=== PATIENT | female | born 1960 | race Caucasian/White ===

== ENCOUNTER 2020-06-15 06:21 | Outpatient (REF) | payer BC, SELFPAY ==
[2020-06-15 11:10] LABS: MANUAL DIFF FLAG NO
[2020-06-15 11:17] LABS: Basophils Absolute Auto 0.1 X10*3/uL (0.0-0.2); Basophils Percent Auto 1.1 % (0-2); Eosinophils Absolute Auto 1.2 X10*3/uL (0.0-0.4); Eosinophils Percent Auto 14.7 % (0-4); Hematocrit 37.1 % (37-47); Hemoglobin 11.9 g/dl (12.0-16.0); Imm Gran Abs Auto 0.03 X10*3/uL (0.00-0.03); Imm Gran Pct Auto 0.4 % (0.0-0.4); Lymphocytes Absolute Auto 2.6 X10*3/uL (1.2-4.9); Lymphocytes Percent Auto 31.7 % (20-40); Mean Corpuscular HGB Conc 32.1 g/dl (31.0-35.0); Mean Corpuscular Volume 90.5 fL (80-98); Mean Platelet Volume 10.2 fL (9.4-12.3); Monocytes Absolute Auto 0.7 X10*3/uL (0.1-1.2); Monocytes Percent Auto 8.2 % (2-11); Neutrophils Absolute Auto 3.5 X10*3/uL (2.0-8.3); Neutrophils Percent Auto 43.9 % (45-73); Platelet Count 320 X10*3/uL (160-400); Red Cell Distribution Width 12.5 % (11.0-16.0); White Blood Count 8.1 X10*3/uL (4.8-10.8)
[2020-06-15 11:48] LABS: Alanine Aminotransferase 12 U/L (0-31); Anion Gap 15 (12-20); Aspartate Amino Transferase 16 U/L (5-31); Blood Urea Nitrogen 19 mg/dL (9-16); Calcium 9.1 mg/dL (8.4-10.2); Carbon Dioxide 25 mmol/L (22-29); Chloride 107 mmol/L (96-108); Cholesterol 243 mg/dL; Estimated Glomerular Filt Rate > 60; Glucose Fasting 88 mg/dL (60-99); HDL Cholesterol 53 mg/dL; LDL Cholesterol Calculated 153 mg/dl; Potassium 4.5 mmol/L (3.3-5.1); Sodium 142 mmol/L (135-145); Triglycerides 188 mg/dL
[2020-06-15 11:59] LABS: Vitamin D 25-OH Total 107.4 ng/mL (>30)
== END 2020-06-15 06:22 | disposition home or self-care (01) ==
LOC: HO.HMGCLDS 06:21
PROVIDERS: PCP Internal Medicine; Visit Provider Internal Medicine
DX: E78.5 Hyperlipidemia, unspecified (principal); I10 Essential (primary) hypertension
CPT/HCPCS: 36415; 80048; 80061; 82306; 84450; 84460; 85025

== ENCOUNTER 2021-06-05 06:20 | Outpatient (REF) | payer BC, SELFPAY ==
[2021-06-05 11:18] LABS: MANUAL DIFF FLAG NO
[2021-06-05 11:37] LABS: Basophils Absolute Auto 0.1 X10*3/uL (0.0-0.2); Eosinophils Absolute Auto 0.7 X10*3/uL (0.0-0.4); Eosinophils Percent Auto 8.8 % (0-4); Hematocrit 40.7 % (37.0-47.0); Hemoglobin 12.8 g/dl (12.0-16.0); Imm Gran Abs Auto 0.01 X10*3/uL (0.00-0.03); Imm Gran Pct Auto 0.1 % (0.0-0.4); Lymphocytes Absolute Auto 2.5 X10*3/uL (1.2-4.9); Lymphocytes Percent Auto 32.6 % (20-40); Mean Corpuscular HGB Conc 31.4 g/dl (31.0-35.0); Mean Corpuscular Hemoglobin 28.9 pg (27.0-33.0); Mean Corpuscular Volume 91.9 fL (80.0-98.0); Mean Platelet Volume 10.7 fL (9.4-12.3); Monocytes Absolute Auto 0.6 X10*3/uL (0.1-1.2); Neutrophils Absolute Auto 3.8 x10*3/uL (2.0-8.3); Neutrophils Percent Auto 49.5 % (45-73); Platelet Count 326 X10*3/uL (160-400); Red Blood Count 4.43 X10*6/uL (4.20-5.50); Red Cell Distribution Width 12.5 % (11.0-16.0); White Blood Count 7.7 X10*3/uL (4.8-10.8)
[2021-06-05 12:23] LABS: Alanine Aminotransferase 16 U/L (0-31); Anion Gap 14 (12-20); Aspartate Amino Transferase 20 U/L (5-31); Blood Urea Nitrogen 16 mg/dL (9-16); Calcium 10.3 mg/dL (8.4-10.2); Carbon Dioxide 27 mmol/L (22-29); Chloride 106 mmol/L (96-108); Cholesterol 234 mg/dL; Estimated Glomerular Filt Rate > 60; Glucose Fasting 87 mg/dL (60-99); HDL Cholesterol 60 mg/dL; LDL Cholesterol Calculated 155 mg/dl; Potassium 4.5 mmol/L (3.3-5.1); Sodium 142 mmol/L (135-145); Triglycerides 95 mg/dL
[2021-06-05 12:47] LABS: Vitamin D 25-OH Total 143.3 ng/mL (>30)
== END 2021-06-05 06:21 | disposition home or self-care (01) ==
LOC: HO.HMGCLDS 06:20
PROVIDERS: Visit Provider Internal Medicine
DX: Z00.01 Encounter for general adult medical examination with abnormal findings (principal); D64.9 Anemia, unspecified; E78.5 Hyperlipidemia, unspecified; Z78.0 Asymptomatic menopausal state
CPT/HCPCS: 36415; 80048; 80061; 82306; 84450; 84460; 85025

== ENCOUNTER 2022-05-29 14:01 | Outpatient (REF) | payer BC, SELFPAY ==
[2022-06-03 13:49] LABS: HPV mRNA E6/E7 rflx Not Detected (Not Detected)
== END 2022-05-29 14:02 | disposition home or self-care (01) ==
LOC: HO.LNP 14:01
PROVIDERS: Visit Provider Internal Medicine
DX: Z01.419 Encounter for gynecological examination (general) (routine) without abnormal findings (principal)
CPT/HCPCS: 87624; 88142

== ENCOUNTER 2022-06-17 06:32 | Outpatient (REF) | payer BC, SELFPAY ==
[2022-06-17 12:42] LABS: Alanine Aminotransferase 12 U/L (0-31); Anion Gap 12 (12-20); Aspartate Amino Transferase 18 U/L (5-31); Blood Urea Nitrogen 18 mg/dL (9-16); Calcium 9.5 mg/dL (8.4-10.2); Carbon Dioxide 28 mmol/L (22-29); Chloride 107 mmol/L (96-108); Cholesterol 285 mg/dL; Estimated Glomerular Filt Rate > 60; Glucose Fasting 89 mg/dL (60-99); HDL Cholesterol 73 mg/dL; LDL Cholesterol Calculated 196 mg/dl; Sodium 142 mmol/L (135-145); Triglycerides 82 mg/dL
[2022-06-17 13:02] LABS: Vitamin D 25-OH Total > 154.2 ng/mL (>30)
[2022-06-23 18:19] LABS: Calcium, Ionized 4.9 mg/dL (4.7-5.5)
== END 2022-06-17 06:33 | disposition home or self-care (01) ==
LOC: HO.HMGCLDS 06:32
PROVIDERS: PCP Internal Medicine; Visit Provider Internal Medicine
DX: Z00.01 Encounter for general adult medical examination with abnormal findings (principal); E67.3 Hypervitaminosis D; E83.52 Hypercalcemia; J34.2 Deviated nasal septum; R43.0 Anosmia; U09.9 Post COVID-19 condition, unspecified; J30.89 Other allergic rhinitis; E78.5 Hyperlipidemia, unspecified
CPT/HCPCS: 36415; 80048; 80061; 82306; 82330; 84450; 84460

== ENCOUNTER 2023-06-03 06:28 | Outpatient (REF) | payer BC, SELFPAY ==
[2023-06-03 12:28] LABS: Alanine Aminotransferase 14 U/L (0-31); Anion Gap 9 (12-20); Aspartate Amino Transferase 15 U/L (5-31); Blood Urea Nitrogen 15 mg/dL (9-16); Calcium 9.2 mg/dL (8.4-10.2); Carbon Dioxide 29 mmol/L (22-29); Chloride 107 mmol/L (96-108); Cholesterol 228 mg/dL (<200); Estimated Glomerular Filt Rate > 60; Glucose Fasting 79 mg/dL (60-99); HDL Cholesterol 69 mg/dL (>40); LDL Cholesterol Calculated 126 mg/dL (<100); Potassium 4.1 mmol/L (3.3-5.1); Sodium 141 mmol/L (135-145); Triglycerides 169 mg/dL (<150); Vitamin D 25-OH Total 97.6 ng/mL (>30)
== END 2023-06-03 06:29 | disposition home or self-care (01) ==
LOC: HO.HMGCLDS 06:28
PROVIDERS: PCP Internal Medicine; Visit Provider Internal Medicine
DX: Z13.1 Encounter for screening for diabetes mellitus (principal); E78.5 Hyperlipidemia, unspecified; Z78.0 Asymptomatic menopausal state
CPT/HCPCS: 36415; 80048; 80061; 82306; 84450; 84460

== ENCOUNTER 2023-06-09 08:05 | Outpatient (AMB) | payer BC, SELFPAY ==
--- NOTE | 2023-06-09 08:10 | MHC.PC.OV ---
Vital Signs 06/09/23 08:28 Height 5 ft 3 in Weight 140 lb BMI 24.8 BP 166/80 H Blood Pressure Location Lt brachial Position Sitting Pulse 89 Pulse Source Pulse Oximeter Pulse Oximetry (%) 93 Oxygen Delivery Method Room Air Intake Visit Reasons: Annual PE Intake Note: Pt is here today for her PE: last papsmear 05/30/22, mammogram 06/08/23, colonoscopy 01/12/23 Allergies No Known Allergies Allergy (Verified 06/09/23 08:43) Medication List - Last Reconciled 06/09/23 by Juany Victoria MD B-complex with vitamin C 1 tab PO DAILY calcium carbonate-vitamin D3 600 mg-12.5 mcg (500 unit) (Calcium 600 with Vitamin D3) caps PO dapsone 100 mg PO DAILY prednisone 10 mg PO DAILY sulfamethoxazole-trimethoprim 400-80 mg (Bactrim) 1 tab PO DAILY Tobacco use date assessed: 06/09/23 Dental Screening Dental Screen Date: 06/09/23 Did you have a dental visit in the last 12 months?: Yes Did you have a dental problem in the last 6 months where you did not have access to dental care?: Yes Was dental information given to patient?: Patient has dentist HPI Annual PE HPI Details 62-year-old lady here today for her physical exam. She is up-to-date with her screening colonoscopy done by Dr. Leone December 2022 with polypectomy done, f internal hemorrhoids and diverticulosis seen. She is up-to-date with her cervical cancer screening, done last year with negative findings. She has had COVID vaccination and flu shot as well as Tdap but has not had shingles vaccine. Up-to-date with her screening mammogram done 06/08/2023 negative findings. She had lost her sense of smell, initially thought it was from COVID, but a biopsy done by ENT showed granulomatosis with polyangiitis with polyangiitis of the sinuses and nasal septum, with negative ANCA. She was treated with 2 courses of rituximab, prednisone, dapsone and Bactrim with significant improvement in her feeling of pressure, facial discomfort and dried sensation nose and has just been continued on saline nasal spray. She denies any rash, joint pains or any abnormal bleeding. [facility] Medical History (Updated 06/16/23 @ 01:12 by Juany Victoria MD) Essential hypertension Granulomatosis with polyangiitis of nose Deviated nasal septum Environmental and seasonal allergies Tear of left meniscus as current injury Dyslipidemia History of dysfunctional uterine bleeding Surgical History Hx of colonoscopy H/O prior ablation treatment History of tubal ligation Family History Father Yesi Gehrig disease Mother No problems noted. Brother CAD (coronary artery disease) Myocardial infarction Sister COPD (chronic obstructive pulmonary disease) Smoker Breast cancer Sister HTN (hypertension) Son Asthma Mental health disorder Sister No problems noted. Brother No problems noted. Son No problems noted. Social History Housing: House Alcohol intake: current Patient Tobacco Use Status: Former Tobacco user e-Cigarette/Vaping Use: Never Used service: No Current occupational status: employed Cognitive needs: No Hearing needs: No Vision needs: Yes Questionnaire PHQ-9 Over the last 2 weeks, how often have you been bothered by any of the following problems? 1. Little interest or pleasure in doing things: not at all 2. Feeling down, depressed, or hopeless: not at all 3. Trouble falling or staying asleep, or sleeping too much: not at all 4. Feeling tired or having little energy: not at all 5. Poor appetite or overeating: not at all 6. Feeling bad about yourself - or that you are a failure or have let yourself or your family down: not at all 7. Trouble concentrating on things, such as reading the newspaper or watching television: not at all 8. Moving or speaking so slowly that other people could have noticed. Or the opposite - being so fidgety or restless that you have been moving around a lot more than usual: not at all 9. Thoughts that you would be better off or of hurting yourself in some way: not at all Total score: 0 Depression Screening Interpretation: Negative Depression Screening Done: Yes 13349 - PHQ-9 Billing: Yes Source: Developed by Drs. Ronald Wayne, Sirena Wilson, Gael Olson and colleagues, with an educational meli from [employer]. Thrive Questionnaire Date Thrive assessed: 06/09/23 I am a: Patient What is your living situation today?: I have a steady place to live Within the past 12 months, did the food you bought not last and you didn't have the money to get more?: Never true Within the past 12 months, did you worry whether your food would run out before you got money to buy more?: Never true Do you have trouble paying for medicines?: No Do you have trouble getting transportation to medical appointments?: No Do you have trouble paying your heating and electricity bill?: No Do you have trouble taking care of your child, family member or friend?: No Do you have trouble with day-to-day activities such as bathing, preparing meals, shopping, managing finances, etc.?: No Are you currently unemployed and looking for a job?: No Are you interested in more education?: No THRIVE Score: 0 AUDIT C Alcohol Use Questionnaire (AUDIT-C) 1. How often do you have a drink containing alcohol?: 2-3 times a week 2. How many drinks containing alcohol do you have on a typical day when you are drinking?: 1 or 2 3. How often do you have six or more drinks on one occasion?: Less than monthly Total Score: 4 ERIC-7 AMB Questionnaire ERIC-7 Date ERIC - 7 assessed: 06/09/23 Feeling nervous, anxious, or on edge: 1 = Several days Not being able to stop or control worryin = Not at all Worrying too much about different things: 1 = Several days Trouble relaxin = Not at all Being so restless that it is hard to sit still: 0 = Not at all Becoming easily annoyed or irritable: 1 = Several days Feeling afraid as if something awful might happen: 0 = Not at all Total ERIC-7 score (0-4 normal; 5-9 mild; 10-14 moderate; 15-21 severe): 3 Source: Developed by Drs. Ronald Wayne, Gael Manzano and colleagues, with an educational meli from [employer]. ERIC-7 Assessment Billing ERIC-7 Assessment Tool: ERIC-7 Assessment 11042 Review of Systems Const Denies body aches, Denies chills, Denies difficulty sleeping, Denies fatigue, Denies fever(s), Denies frequent falls, Denies headache(s), Denies lethargy, Denies malaise, Reports night sweats, Denies poor appetite and Denies weakness Eyes Reports no additional complaints ENT Reports no additional complaints and Denies headache(s) Card Denies chest pain, Denies irregular heart rhythm and Denies lightheadedness Resp Reports no additional complaints GI Reports no additional complaints Reports no additional complaints and Denies nipple discharge Musc Denies atrophy, Denies loss of height and Denies muscle weakness Skin/Breast Denies breast skin changes, Denies breast pain, Denies breast mass, Denies lesions, Denies nipple discharge and Denies rash Neuro Denies Neuro-related abnormal movements, Denies frequent falls, Denies headache(s), Denies lack of coordination, Denies focal weakness, Denies Sensory deficit (Neuro) and Denies weakness Psych Reports no additional complaints Endo Reports no additional complaints and Denies fatigue Justin/Lymph Reports no additional complaints Aller/Immun Reports no additional complaints Physical exam (Primary Care) Vital Signs: Last Vital Signs Pulse 89 06/09/23 08:28 BP 166/80 H 06/09/23 08:28 Pulse Ox 93 06/09/23 08:28 Oxygen Delivery Method Room Air 06/09/23 08:28 BMI result Body Mass Index 24.8 Tobacco/Smoking Status: Tobacco use Status Tobacco use date assessed 06/09/23 06/09/23 08:12 Patient Tobacco Use Status Former Tobacco user 06/09/23 08:12 e-Cigarette/Vaping Use Never Used 06/09/23 08:12 PHQ-9: PHQ-9 Score PHQ-9: Total score 0 06/09/23 09:34 Depression Screening Interpretation: Negative Thrive Assessment: Date of Thrive Assessment Date Thrive assessed 06/09/23 06/09/23 08:12 Const Orientation/consciousness: patient oriented x3 HENMT Head: Yes normocephalic Ears: external ears normal, TM's normal bilaterally and EAC's normal General nose exam: Normal nasal mucous membranes and turbinates present and Abnormal external nose present (slight asymmetry of nasal bridge on left) nasal deviation Face and sinus: Yes face symmetric Mouth: Normal oral and palatal mucosa present, oropharynx normal and moist mucous membranes Eyes General: appearance normal, both eyes and all related structures Neck Neck: Yes full ROM, Yes no lymphadenopathy, Yes no meningeal signs and Yes supple Thyroid: Thyroid normal Chest Chest palpation & inspection: normal inspection of the chest Breast/axilla palpation: normal palpation of the breasts Resp Effort & Inspection: normal respiratory effort and able to speak in complete sentences Auscultation: clear to auscultation bilaterally Cardio Palpation: normal PMI Rate: regular rate Rhythm: regular rhythm Heart sounds: S1 normal heart sound present and S2 normal heart sound present Bruits: no abdominal aortic bruits GI Inspection: Yes normal to inspection Palpation (GI): No Abdominal aortic bruit present, Soft to palpation, nontender and no guarding Auscultation: normal bowel sounds General: Yes no CVA tenderness Back/Spine/Pelvis Back: no CVA tenderness and No back tenderness Skin General skin exam: no rashes or lesions noted Neuro General: patient oriented x3, gait normal, tone normal, moves all extremities, Normal light touch and pain sensation, no meningeal signs, no focal motor deficits and CN's II-XI intact bilaterally Sensory Exam: No Sensory deficit (Neuro) Extrem General: Yes full ROM, Yes no joint enlargement, Yes no pedal edema, Yes no calf tenderness and Yes normal gait Psych Appearance: grossly normal Mental Status: mental status grossly normal Speech and movement: Normal speech and movement present Affect: normal affect Attitude: cooperative Thought process: Normal thought process present Thought content: Normal thought content present Results Reviewed Results Reviewed: Name: Galina Escobar Age/Sex: 62/F : 1960 Unit#: [id number] Attend Dr: Juany Victoria MD Re06/03/23 Status: DEP [facility] Disch: SPEC : [id number] MILLICENT: 06/03/23 STATUS: COMP REQ : [id number] RECD: 06/03/[address]: Juany Victoria MD COMP: 06/03/23 ENTERED: 06/03/[address]: ORDERED: Met Prof Fast, AST, ALT, Lipid Panel, Vitamin D 25-OH Test Result Flag Reference Sodium 141 135-145 mmol/L Potassium 4.1 3.3-5.1 mmol/L CL 107 96-108 mmol/L CO2 29 22-29 mmol/L Gap 9 L 12-20 BUN 15 9-16 mg/dL Creat 0.71 0.5-1.4 mg/dL EGFR > 60 NOTE: For -[place] individuals, multiply the result by 1.210. Chronic Kidney Disease: Estimated GFR < 60 mL/min/1.73m2 Severe Kidney Disease: Estimated GFR < 15 mL/min/1.73m2 FBS 79 60-99 mg/dL CA 9.2 8.4-10.2 mg/dL AST (GOT) 15 5-31 U/L ALT (GPT) 14 0-31 U/L Triglyceride 169 H <150 mg/dL Desirable Triglyceride: less than 150 mg/dL Borderline High Triglyceride 150-199 mg/dL High Triglyceride: 200-499 mg/dL Very High Triglyceride: greater than or equal to 5OO mg/dL Cholesterol 228 H <200 mg/dL Desirable Cholesterol: less than 200 mg/dL Borderline High Cholesterol: 200-239 mg/dL High Cholesterol: greater than 239 mg/dL LDL Calculated 126 H <100 mg/dL Desirable LDL: less than 100 mg/dL Near Optimal/Above Optimal LDL: 110-129 mg/dL Borderline High LDL: 130-159 mg/dL High LDL: 160-189 mg/dL Very High LDL: greater than or equal to 190 mg/dL HDL 69 >40 mg/dL Desirable HDL: greater than 40 mg/dL Note: This HDL assay may give artificially low results in patients with liver disease. Vit D 25-OH Tot 97.6 >30 ng/mL Health Based Reference Values* < 20 ng/mL Deficient 20-30 ng/mL Insufficient > 30 ng/mL Sufficient Assessment and Plan Assessment & Plan (1) Annual visit for general adult medical examination with abnormal findings: Code(s): Z00.01 - Encounter for general adult medical examination with abnormal findings Plan: Reviewed recent fasting labs with patient. Continue with regular.dental visit every 6 months and regular eye exams, at least every 2 years. Take adequate calcium in diet and vitamin-D 3 at 2000 IU per cap once a day, in addition to weight-bearing exercises to help maintain good muscle tone and weight control. Instructed to do self-breast exam, and continue with yearly mammogram up-to-date with her cervical cancer screening and pelvic exam. Up-to-date with her screening colonoscopy. Up-to-date with her vaccinations including COVID vaccine booster and flu vaccine. Recommended to get vaccination against herpes zoster, available at the pharmacy. (2) Granulomatosis with polyangiitis of nose: Comment: Biopsy done by Dr. Linda with negative ANCA Code(s): M31.30 - Mike's granulomatosis without renal involvement Plan: Followed by Dr. Vergara , continue with regular saline nasal wash (3) Essential hypertension: Code(s): I10 - Essential (primary) hypertension Plan: Started on hydrochlorothiazide 12.5 mg per tablet, to take 1 tablet daily in a.m., reinforced i adherence to low-salt diet and getting regular exercise schedule appointment with nurse to check blood pressure in 2 weeks (4) Dyslipidemia: Code(s): E78.5 - Hyperlipidemia, unspecified Plan: Recent fasting lipid panel reviewed with patient, continue with regular weight-bearing exercise, and adherence to healthy eating habits. Medications: New hydrochlorothiazide 12.5 mg PO QAM 30 tabs 1RF Coding Level of Care Code Est Pt Prev Care 40-64y(88914) Diagnoses Annual visit for general adult medical examination with abnormal findings Z00.01 Granulomatosis with polyangiitis of nose M31.30 Essential hypertension I10 Dyslipidemia E78.5 Additional Codes ERIC-7 Assessment Billing - ERIC-7 Assessment Tool: ERIC-7 Assessment 75475 ([id number])
[2023-06-09 08:28] VITALS: BP 166/80; PULSE 89; O2SAT 93; BMI 24.8
== END 2023-06-09 09:30 | disposition home or self-care (01) ==
PROVIDERS: Visit Provider Internal Medicine
DX: Z00.01 Encounter for general adult medical examination with abnormal findings (principal); M31.30 Wegener's granulomatosis without renal involvement; I10 Essential (primary) hypertension; E78.5 Hyperlipidemia, unspecified
CPT/HCPCS: 99396

== ENCOUNTER 2024-06-20 06:10 | Outpatient (REF) | payer OTHER, SELFPAY ==
[2024-06-20 10:50] LABS: Alanine Aminotransferase 19 U/L (0-31); Anion Gap 12 (12-20); Aspartate Amino Transferase 25 U/L (5-31); Blood Urea Nitrogen 12 mg/dL (9-16); Calcium 9.3 mg/dL (8.4-10.2); Carbon Dioxide 27 mmol/L (22-29); Chloride 107 mmol/L (96-108); Cholesterol 276 mg/dL (<200); Estimated Glomerular Filt Rate > 60; Glucose Fasting 86 mg/dL (60-99); HDL Cholesterol 59 mg/dL (>40); LDL Cholesterol Calculated 160 mg/dL (<100); Potassium 4.1 mmol/L (3.3-5.1); Sodium 142 mmol/L (135-145); Triglycerides 288 mg/dL (<150)
== END 2024-06-20 06:11 | disposition home or self-care (01) ==
LOC: HO.HMGCLDS 06:10
PROVIDERS: PCP Internal Medicine; Visit Provider Internal Medicine
DX: I10 Essential (primary) hypertension (principal); E78.5 Hyperlipidemia, unspecified; Z78.0 Asymptomatic menopausal state
CPT/HCPCS: 36415; 80048; 80061; 82306; 84450; 84460

== ENCOUNTER 2024-06-22 08:25 | Outpatient (AMB) | payer OTHER, SELFPAY ==
[2024-06-22 08:32] VITALS: BP 138/80; PULSE 64; O2SAT 96; BMI 26.4
--- NOTE | 2024-06-22 08:32 | A.OFFPC_ITS ---
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 Required: No Accompanied by: Self / Same As Patient Allergies No Known Allergies Allergy (Verified 06/22/24 08:52) Medication List - Last Reconciled 06/22/24 by Juany Victoria MD B-complex with vitamin C 1 tab PO DAILY calcium carbonate-vitamin D3 600 mg-12.5 mcg (500 unit) (Calcium with Vit D3) caps PO fluticasone propionate 50 mcg/actuation (Allergy Relief (fluticasone)) 1 spray intranasal DAILY 3 months hydrochlorothiazide 12.5 mg PO QAM Tobacco use date assessed: 06/22/24 Dental Screening Dental Screen Date: 06/22/24 Did you have a dental visit in the last 12 months?: Yes Did you have a dental problem in the last 6 months where you did not have access to dental care?: No Was dental information given to patient?: Patient has dentist HPI PE HPI Details 64-year-old lady here today for her phys ical exam. She is up-to-date with her screening mammogram, done at [facility] last May 2024, with benign findings copy of results requested, and her last cervical cancer screening was done in May of 2022 with benign findings. She is up-to-date with her screening colonoscopy done by Dr. Leone December 2022 with polypectomy done, internal hemorrhoids and diverticulosis seen. She has had COVID vaccination and flu shot as well as Tdap but has not had shingles vaccine. Has been diagnosed with alleviating nasal septum, chronic rhinitis and Mike's granulomatosis, seen by ENT, and previously treated with dapsone, now only using fluticasone nasal spray as needed. She has hypertension currently controlled with hydrochlorothiazide 12.5 mg taken once a day . [facility] Medical History Essential hypertension Granulomatosis with polyangiitis of nose Deviated nasal septum Environmental and seasonal allergies Tear of left meniscus as current injury Dyslipidemia History of dysfunctional uterine bleeding Surgical History Hx of colonoscopy H/O prior ablation treatment History of tubal ligation Family History Father Yesi Gehrig disease Mother No problems noted. Brother CAD (coronary artery disease) Myocardial infarction Sister COPD (chronic obstructive pulmonary disease) Smoker Breast cancer Sister HTN (hypertension) Son Asthma Mental health disorder Sister No problems noted. Brother No problems noted. Son No problems noted. Social History Housing: House Alcohol intake: current Patient Tobacco Use Status: Former Tobacco user e-Cigarette/Vaping Use: Never Used service: No Current occupational status: employed Cognitive needs: No Hearing needs: No Vision needs: Yes Questionnaire PHQ-9 Over the last 2 weeks, how often have you been bothered by any of the following problems? 1. Little interest or pleasure in doing things: not at all 2. Feeling down, depressed, or hopeless: not at all 3. Trouble falling or staying asleep, or sleeping too much: not at all 4. Feeling tired or having little energy: not at all 5. Poor appetite or overeating: not at all 6. Feeling bad about yourself - or that you are a failure or have let yourself or your family down: not at all 7. Trouble concentrating on things, such as reading the newspaper or watching television: not at all 8. Moving or speaking so slowly that other people could have noticed. Or the opposite - being so fidgety or restless that you have been moving around a lot more than usual: not at all 9. Thoughts that you would be better off or of hurting yourself in some way: not at all Total score: 0 Depression Screening Interpretation: Negative Depression Screening Done: Yes 41666 - PHQ-9 Billing: Yes Source: Developed by Drs. Ronald Wayne, Sirena Wilson, Gael Olson and colleagues, with an educational meli from [employer]. Thrive Questionnaire Date Thrive assessed: 06/22/24 I am a: Patient What is your living situation today?: I have a steady place to live Within the past 12 months, did the food you bought not last and you didn't have the money to get more?: Never true Within the past 12 months, did you worry whether your food would run out before you got money to buy more?: Never true Do you have trouble paying for medicines?: No Do you have trouble getting transportation to medical appointments?: No Do you have trouble paying your heating and electricity bill?: No Do you have trouble taking care of your child, family member or friend?: No Do you have trouble with day-to-day activities such as bathing, preparing meals, shopping, managing finances, etc.?: No Are you currently unemployed and looking for a job?: No Are you interested in more education?: No Please select the resources that you would like help with: None Currently or been in a relationship where the following occur: No concerns reported THRIVE Score: 0 AUDIT C Alcohol Use Questionnaire (AUDIT-C) 1. How often do you have a drink containing alcohol?: 2-3 times a week 2. How many drinks containing alcohol do you have on a typical day when you are drinking?: 1 or 2 3. How often do you have six or more drinks on one occasion?: Less than monthly Total Score: 4 Score Reviewed/Action Taken: Yes ERIC-7 AMB Questionnaire ERIC-7 Date ERIC - 7 assessed: 06/22/24 Feeling nervous, anxious, or on edge: 0 = Not at all Not being able to stop or control worryin = Not at all Worrying too much about different things: 0 = Not at all Trouble relaxin = Not at all Being so restless that it is hard to sit still: 0 = Not at all Becoming easily annoyed or irritable: 0 = Not at all Feeling afraid as if something awful might happen: 0 = Not at all Total ERIC-7 score (0-4 normal; 5-9 mild; 10-14 moderate; 15-21 severe): 0 Source: Developed by Drs. Ronald Wayne, Sirena Wilson, Gael Olson and colleagues, with an educational meli from [employer]. ERIC-7 Assessment Billing ERIC-7 Assessment Tool: ERIC-7 Assessment 69082 Review of Systems Const Denies body aches, Denies chills, Denies difficulty sleeping, Denies fatigue, Denies fever(s), Denies frequent falls, Denies lethargy, Denies malaise, Reports night sweats, Denies poor appetite and Denies weakness Eyes Reports no additional complaints ENT Reports no additional complaints Card Denies chest pain, Denies irregular heart rhythm and Denies lightheadedness Resp Reports no additional complaints GI Reports no additional complaints Reports no additional complaints Musc Denies loss of height and Denies muscle weakness Skin/Breast Denies breast pain, Denies breast mass, Denies lesions and Denies rash Neuro Denies Neuro-related abnormal movements, Denies frequent falls, Denies lack of coordination, Denies focal weakness, Denies Sensory deficit (Neuro) and Denies weakness Psych Reports no additional complaints Endo Reports no additional complaints and Denies fatigue Justin/Lymph Reports no additional complaints Aller/Immun Reports no additional complaints Physical exam (Primary Care) Vital Signs: Last Vital Signs Pulse 64 06/22/24 08:32 BP 138/80 06/22/24 08:32 Pulse Ox 96 06/22/24 08:32 Oxygen Delivery Method Room Air 06/22/24 08:32 BMI result Body Mass Index 26.4 Tobacco/Smoking Status: Tobacco use Status Tobacco use date assessed 06/22/24 06/22/24 08:33 Patient Tobacco Use Status Former Tobacco user 06/22/24 08:33 e-Cigarette/Vaping Use Never Used 06/22/24 08:33 PHQ-9: PHQ-9 Score PHQ-9: Total score 0 06/22/24 08:53 Depression Screening Interpretation: Negative Thrive Assessment: Date of Thrive Assessment Date Thrive assessed 06/22/24 06/22/24 08:33 Currently or been in a relationship where the following occur: No concerns reported Const Orientation/consciousness: patient oriented x3 HENMT Head: Yes normocephalic Ears: external ears normal, TM's normal bilaterally and EAC's normal General nose exam: Normal nasal mucous membranes and turbinates present and Abnormal external nose present (slight asymmetry of nasal bridge on left) nasal deviation Face and sinus: Yes face symmetric Mouth: Normal oral and palatal mucosa present, oropharynx normal and moist mucous membranes Eyes General: appearance normal, both eyes and all related structures Neck Neck: Yes full ROM, Yes no lymphadenopathy, Yes no meningeal signs and Yes supple Thyroid: Thyroid normal Chest Chest palpation & inspection: normal inspection of the chest Breast/axilla palpation: normal palpation of the breasts Resp Effort & Inspection: normal respiratory effort and able to speak in complete sentences Auscultation: clear to auscultation bilaterally Cardio Palpation: normal PMI Rate: regular rate Rhythm: regular rhythm Heart sounds: S1 normal heart sound present and S2 normal heart sound present Bruits: no abdominal aortic bruits GI Inspection: Yes normal to inspection Palpation (GI): No Abdominal aortic bruit present, Soft to palpation, nontender and no guarding Auscultation: normal bowel sounds General: Yes no CVA tenderness Back/Spine/Pelvis Back: no CVA tenderness and No back tenderness Skin General skin exam: no rashes or lesions noted Neuro General: patient oriented x3, gait normal, tone normal, moves all extremities, Normal light touch and pain sensation, no meningeal signs, no focal motor deficits and CN's II-XI intact bilaterally Sensory Exam: No Sensory deficit (Neuro) Extrem General: Yes full ROM, Yes no joint enlargement, Yes no pedal edema, Yes no calf tenderness and Yes normal gait Psych Appearance: grossly normal Mental Status: mental status grossly normal Speech and movement: Normal speech and movement present Affect: normal affect Attitude: cooperative Thought process: Normal thought process present Thought content: Normal thought content present Results Reviewed Results Reviewed: Name: Galina sEcobar Age/Sex: 63/F : 1960 Unit#: [id number] Attend Dr: Juany Victoria MD Re06/20/24 Status: DEP REF [facility] Disch: SPEC : [id number] MILLICENT: 06/20/24 STATUS: COMP REQ : [id number] RECD: 06/20/[address]: Juany Victoria MD COMP: 06/20/24 ENTERED: 06/20/[address]: ORDERED: Met Prof Fast, AST, ALT, Lipid Panel, Vitamin D 25-OH Test Result Flag Reference Sodium 142 135-145 mmol/L Potassium 4.1 3.3-5.1 mmol/L CL 107 96-108 mmol/L CO2 27 22-29 mmol/L Gap 12 12-20 BUN 12 9-16 mg/dL Creat 0.77 0.5-1.4 mg/dL eGFR > 60 Chronic Kidney Disease: Estimated GFR < 60 mL/min/1.73m2 Severe Kidney Disease: Estimated GFR < 15 mL/min/1 .73m2 FBS 86 60-99 mg/dL CA 9.3 8.4-10.2 mg/dL AST (GOT) 25 5-31 U/L ALT (GPT) 19 0-31 U/L Triglyceride 288 H <150 mg/dL Desirable Triglyceride: less than 150 mg/dL Borderline High Triglyceride 150-199 mg/dL High Triglyceride: 200-499 mg/dL Very High Triglyceride: greater than or equal to 5OO mg/dL Cholesterol 276 H <200 mg/dL Desirable Cholesterol: less than 200 mg/dL Borderline High Cholesterol: 200-239 mg/dL High Cholesterol: greater than 239 mg/dL LDL Calculated 160 H <100 mg/dL Desirable LDL: less than 100 mg/dL Near Optimal/Above Optimal LDL: 110-129 mg/dL Borderline High LDL: 130-159 mg/dL High LDL: 160-189 mg/dL Very High LDL: greater than or equal to 190 mg/dL HDL 59 >40 mg/dL Desirable HDL: greater than 40 mg/dL Note: This HDL assay may give artificially low results in patients with liver disease. Vitamin D 25-OH 126.0 >30 ng/mL Health Based Reference Values* < 20 ng/mL Deficient 20-30 ng/mL Insufficient > 30 ng/mL Sufficient Coding Level of Care Code Est Pt Prev Care 40-64y(99623) Diagnoses Annual visit for general adult medical examination with abnormal findings Z. Screening for malignant neoplasm of cervix Z12.4 Dyslipidemia E78.5 Hypervitaminosis D E67.3 Granulomatosis with polyangiitis of nose M31.30 Essential hypertension I10 Additional Codes ERIC-7 Assessment Billing - ERIC-7 Assessment Tool: ERIC-7 Assessment 99552 ([id number]) PHQ-9 - 53652 - PHQ-9 Billing: Yes ([id number]) Assessment & Plan Assessment & Plan (1) Annual visit for general adult medical examination with abnormal findings: Code(s): Z00.01 - Encounter for general adult medical examination with abnormal findings Plan: Recent fasting lab reviewed with patient.. Recommended dental visit every 6 months and regular eye exams, at least every 2 years. Take adequate calcium in diet and vitamin-D 3 at 2000 IU per cap once a day, in addition to weight- bearing exercises to help maintain good muscle tone and weight control. Instructed to do self-breast exam, and continue yearly mammogram, due for her cervical cancer screening, referred to [facility]. Up-to-date with her screening colonoscopy, sees Dr. Leone (2) Screening for malignant neoplasm of cervix: Code(s): Z12.4 - Encounter for screening for malignant neoplasm of cervix Plan: Referred to OBGYN for her routine Pap and pelvic exam (3) Dyslipidemia: Code(s): E78.5 - Hyperlipidemia, unspecified Category: Medical Plan: Reviewed recent fasting lipid profile with patient with higher LDL cholesterol and triglycerides.. Stressed importance of adherence to low-cholesterol diet and regular exercise, at least 30 minutes 3 to 4 times a week. Advised patient to make healthy food choices, eat more fruits, vegetables, whole grains, wild caught fish and low-fat dairy. Limit amount of meat and fried or fatty food products, as well as processed foods and fast foods. Follow-up scheduled with repeat fasting lipid panel in September 2024 (4) Hypervitaminosis D: Code(s): E67.3 - Hypervitaminosis D Plan: Latest fasting labs showed elevated vitamin-D levels. Advised to stop taking [id number] vitamin-D 3 supplements, until checked again in September (5) Granulomatosis with polyangiitis of nose: Comment: Biopsy done by Dr. Linda with negative ANCA Code(s): M31.30 - Mike's granulomatosis without renal involvement Category: Medical Plan: Followed by Dr. Valdez , continue nasal saline wash (6) Essential hypertension: Code(s): I10 - Essential (primary) hypertension Category: Medical Plan: Continue hydrochlorothiazide Pap 5 mg taken daily Reinforced importance of following a low sodium diet, getting regular exercise, and lowering stress levels. 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
--- OUTSIDE RECORDS SUMMARY | 2024-06-22 08:41 | XMS_ITS | Clinical Summary ---
Author Organization [facility] Address [address] [place] [address] Phone Care Team Providers Care Glue Reel Operator Name Role Phone Juany Victoria MD Primary Care Provider [phone] Encounters Date Type Department Care Team Description 06/09/2024 1:00 PM EDT - 06/09/2024 11:59 PM EDT Hospital Encounter [facility] [address] [place] [address] Encounter for screening mammogram for breast cancer Discharge Disposition: Home or Self Care from Last 3 Months Family History Medical History Relation Name Comments Breast cancer Sister Relation Name Status Comments Sister Social History Tobacco Use Types Packs/Day Years Used Date Smoking Tobacco: Never Assessed Comments No Sex and Gender Information Value Date Recorded Sex Assigned at Female 01/27/2024 11:48 AM EST Legal Sex Female 1:05 AM EST Gender Identity Female 01/27/2024 11:48 AM EST Sexual Orientation Straight 01/27/2024 11 :48 AM EST Obstetrics History Para Term AB IAB SAB Ectopic Multiple Livin g Live Births 2 Last Filed Vital Signs Vital Sign Reading Time Taken Comments Blood Pressure - - Pulse - - Temperature - - Respiratory Rate - - Oxygen Saturation - - Inhaled Oxygen Concentration - - Weight 65.3 kg (144 lb) 06/09/2024 1:14 PM EDT Height 160 cm (5' 3 ) 06/09/2024 1:14 PM EDT Body Mass Index 25.51 06/09/2024 1:14 PM EDT Plan of Treatment Health Maintenance Due Date Last Done Comments DTaP,Tdap,and Td Vaccines (1 - Tdap) 1980 Cervical Cancer Screening: Pap Smear 1982 Pneumococcal Vaccine: 50+ Years (1 of 1 - PCV) 06/25/2011 Zoster Vaccines (1 of 2) 06/25/2011 Cholesterol Screening (Lipid Panel) 02/23/2022 Colorectal Cancer Screening: Colonoscopy 02/23/2022 Depression Screening 02/23/2022 HIV Screening 02/23/2022 Social Influencers of Health Screening 02/23/2022 Influenza Vaccine (#1) 2023 , 01/22/2022, 01/15/2021, Additional history exists Hypertension/CHF/CAD Annual BMP Blood Test 04/25/2025 04/25/2024, 12/14/2023, 07/29/2023, Additional history exists Breast Cancer Screening 06/09/2026 06/10/19, 06/08/2023, 06/02/2022, Additional history exists RSV Immunization Adult Patients (1 - 1-dose 75+ series) 2036 Hepatitis C Screening Completed 03/20/2023 COVID-19 Vaccine Completed 01/29/2024, 05/2022, 01/22/2022, Additional history exists HIB Vaccines Aged Out No longer eligi ble based on patient's age to complete this topic HPV Vaccines Aged Out No longer eligi ble based on patient's age to complete this topic Hepatitis A Vaccines Aged Out No long er eligible based on patient's age to complete this topic Hepatitis B Vaccines Aged Out No long er eligible based on patient's age to complete this topic IPV Vaccines Aged Out No longer eligi ble based on patient's age to complete this topic MMR Vaccines Aged Out No longer eligi ble based on patient's age to complete this topic Meningococcal ACWY Vaccine Aged Out N o longer eligible based on patient's age to complete this topic Meningococcal B Vacine Aged Out No lo nger eligible based on patient's age to complete this topic Pneumococcal Vaccine: Pediatrics (0 to 5 Years) and At-Risk Patients (6 to 64 Years) Aged Out No longer eligible based on patient's age to complete this topic RSV Immunization Patients Under 20 months Aged Out No longer eligible based on patient's age to complete this topic Varicella Vaccines Aged Out No longer eligible based on patient's age to complete this topic Procedures Procedure Name Priority Date/Time Associated Diagnosis Comments MG MAMMO DIGITAL SCREENING W GAEL BILAT Routine 06/09/2024 1:22 PM EDT Encounter for screening mammogram for breast cancer from Last 3 Months Results * MG Mammo Digital Screening w Gael bilat (06/09/2024 1:22 PM EDT) Anatomical Region Laterality Modality Breast Bilateral Mammography 06/09/2024 2:21 PM EDT Impressions 06/09/2024 2:23 PM EDT No evidence of breast malignancy. BI-RADS CATEGORY: 1 - NEGATIVE RECOMMENDATION: Screening bilateral mammogram is recommended in 1 year. Mammo Location: [facility], [address] [place] [address], [id number], . -------- FINAL REPORT -------- Dictated By: Ellen Cotton Dictated Date: 06/09/2024 14:21 ET Assigned Physician: Ellen Cotton Reviewed and Electronically Signed By: Ellen Cotton Signed Date: 06/09/2024 14:23 ET Workstation ID: [id number] Transcribed By: Self Edit Transcribed Date: 06/09/2024 14:21 ET Narrative 06/09/2024 2:23 PM EDT CLINICAL: 63 years old, Female, routine annual exam. COMPARISON: 06/08/2023, 06/02/2022, 05/31/2021 and 05/24/2020 ?? TECHNIQUE: Bilateral MLO and CC views were obtained digitally with 3-D mammogram (digital breast tomosynthesis). Computer-aided detection was utilized in evaluation of this exam (CAD). FINDINGS: There is no evidence of suspicious mass or architectural distortion. ??No worrisome calcifications are evident. ??There has been no significant change from prior exam(s). ?? BREAST DENSITY: B - There are scattered areas of fibroglandular density. Procedure Note Ellen Cotton MD - 06/09/2024 CLINICAL: 63 years old, Female, routine annual exam. COMPARISON: 06/08/2023, 06/02/2022, 05/31/2021 and 05/24/2020 TECHNIQUE: Bilateral MLO and CC views were obtained digitally with 3-Dmammogram (digital breast tomosynthesis). Computer-aided detection wasutilized in evaluation of this exam (CAD). FINDINGS: There is no evidence of suspicious mass or architectural distortion. Noworrisome calcifications are evident. There has been no significantchange from prior exam(s). BREAST DENSITY: B - There are scattered areas of fibroglandular density. IMPRESSION: No evidence of breast malignancy. BI-RADS CATEGORY: 1 - NEGATIVE RECOMMENDATION: Screening bilateral mammogram is recommended in 1 year. Mammo Location: [facility], [address] [place] [address], [id number], . -------- FINAL REPORT -------- Dictated By: Ellen Cotton Dictated Date: 06/09/2024 14:21 ET Assigned Physician: Ellen Cotton Reviewed and Electronically Signed By: Ellen Cotton Signed Date: 06/09/2024 14:23 ET Workstation ID: [id number] Transcribed By: Self Edit Transcribed Date: 06/09/2024 14:21 ET us Self Referral Sppl IMG BI PROCEDURES Final Resul t from Last 3 Months Insurance CIG Care Teams Glue Reel Operator Relationship Specialty Start Date End Date Juany Victoria MD [address] [facility] [place] [id number] PCP - General Internal Medicine 01/27/24
--- OUTSIDE RECORDS SUMMARY | 2024-06-22 08:42 | XMS_ITS | Data Portability ---
Author Organization [place] - [facility], Allergy Address [address] [place] [id number] Care Team Providers Care Team Leader Name Role Phone SUNITA MILLER Primary Care Provider [phone] LAUREN MCCLELLAND OTHER Assessment Encounter Date Assessment Date Assessment LastModified by Organization Details LastModified Time 11/16/2023 11/16/2023 Overall patient appears to be doing quite well having transitioned off of prednisone. She continues on dapsone and Bactrim. No bleeding. Sense of smell is good. No skin involvement, hematuria or hearing change. She will follow-up with Dr. Mcclelland in a couple of weeks to discuss medication management. Otherwise I will see her back in 3 months. She will contact me if any additional concerns [email or web address] Not available 11/16/2023 09:41:09 02/29/2024 02/29/2024 Moderate crusting removed. Mild inflammatory changes of the mucosa. Last rituximab infusion was April. We will try to coordinate for her to get an infusion locally. She is also working on something in the [place] area [email or web address] Not available 02/29/2024 09:22:03 Plan of Treatment Reminders Order Date Submit Date Provider Last Modified By Organization Details Last Modified Time Details Appointments Establish ed 15 2024 08:45A Gisel POPE MD Not available Not available Not available Establish ed 15 2024 08:45A Gisel POPE MD Not available Not available Not available Lab None recorded. Referral None recorded. Procedures None recorded. Surgeries None recorded. Imaging None recorded. Medication Orders None recorded. Patient TargetsNo targets recorded. 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 Evidence of significant erosion of the sinus cavities. She does have loss of sense of smell and we reviewed this is more likely due to stagnation of the odor molecules than from the underlying disease. There is no evidence of any nasal polyps. Extensive crusting was removed from the superior nasal cavity. Overall her breathing has been excellent no visual difficulties no skin lesions no neuropathy and no lung symptoms. She will continue medical management locally and in [place]. I will see her back in 3 months. [email or web address] Not available 06/09/2024 11:15:26 Reason for Referral None Reported. Results Created Date Observation Date Name Description Value Unit Range Abnormal Flag Note LastModifiedBy Organization Detail LastModifiedTime 11/12/19 24 04/20/2023 imagi ng/di agnos tic resul t No observ ation record ed. [email or web address] Not Available 16:45:08 11/12/19 24 12/30/2022 imagi ng/di agnos tic resul t No observ ation record ed. [email or web address] Not Available 16:45:17 11/12/19 24 03/02/2023 imagi ng/di agnos tic resul t No observ ation record ed. [email or web address] Not Available 16:45:27 11/12/19 24 03/02/2023 imagi ng/di agnos tic resul t No observ ation record ed. [email or web address] Not Available 16:45:29 Result Notes None recorded. Problems Name Problem SNOMED Code Status Onset Date Resolution Date Notes Provider Name and Address Organization Details Recorded Time Chronic rhinitis 38286355 Active 2022 Chronic rhinitis; Note: Date Diagnosed: 08/27/2022 2:07 PM (J31.0) Not Available [facility] 02:14:37 Deviated nasal septum 166670416 Active 2022 Deviated nasal septum; Note: Date Diagnosed: 08/27/2022 2:07 PM (J34.2) Not Available [facility] 4 02:15:01 Disorder of smell 866265400 Active 2022 Other disturbanc es of smell and taste; Note: Date Diagnosed: 08/27/2022 2:07 PM (R43.8) Not Available [facility] 4 02:15:25 Disorder of taste 290708620 Active 2022 Other disturbanc es of smell and taste; Note: Date Diagnosed: 08/27/2022 2:07 PM (R43.8) Not Available [facility] 4 02:15:25 Granuloma tosis with polyangii tis 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 Procedures Surgical History Date Name Laterality Status Provider Name and Address Organization Details Recorded Time 5 JMSNasal/Sinu s Endoscopy-LOS OR surgical cavities completed JACKY SHAVER MD [address] [facility],[place] [address], [place], [address], [place] - [facility] 06/09/2024 11:12:13 4 JMSNasal/Sinu s Endoscopy-LOS OR surgical cavities completed JACKY SHAVER MD [address] [facility],[place] [address], [place], [address], [place] [facility] 02/29/2024 09:27:12 4 JMSNasal/Sinu s Endoscopy-LOS OR surgical cavities completed JACKY SHAVER MD [address] [facility],[address], [address], [place] [facility] 11/16/2023 09:42:22 Imaging Results Imaging Date Name Status LastModified by Organ [facility] Details LastModified Time 04/20/2023 imaging/diag nostic result completed Information not available 11/12/2023 16:45:08 12/30/2022 imaging/diag nostic result completed Information not available 11/12/2023 16:45:17 03/02/2023 imaging/diag nostic result completed Information not available 11/12/2023 16:45:27 03/02/2023 imaging/diag nostic result completed Information not available 11/12/2023 16:45:29 Procedure Notes None recorded. Medical Equipment None Reported. Allergies No known drug allergies Medications Name Sig Start Date Stop Date Status Note LastModified by Organization Details LastModified Time prednison e 10 mg tablet TAKE TWO TABLETS BY MOUTH EVERY DAY WITH BREAKFAS T 02/26 completed Not Available Not Available Not Available sulfameth oxazole 400 mg-trimet hoprim 80 mg tablet TAKE ONE TABLET BY MOUTH EVERY DAY 02/26 completed Not Available Not Available Not Available tretinoin 0.025 % topical cream APPLY A PEA-SIZE D AMOUNT TO ENTIRE FACE AND NECK ONCE EVERY NIGHT. WAIT 30 MIN TO 1 HOUR AFTER WASHING FACE TO APPLY. MAY APPLY MOISTERI ZER active Not Available Not Available No t Available prednison e 5 mg tablet TAKE ONE TABLET BY MOUTH EVERY DAY WITH BREAKFAS T 02/26 completed Not Available Not Available Not Available peg-elect rolyte solution 420 gram oral solution 02/26 completed Medicati on ID: [id number] B rand Name: peg-elec trolyte soln Sen d Method: E-Prescr ibed Sub s Allowed: subs OK Medic ationGen ericName : peg-elec trolyte soln Not Available Not Available Not Available doxycycli ne monohydra te 100 mg capsule 1 capsule by mouth twice a day 05/11 completed Medicati on ID: [id number] D uration Value: 21 Prescri bed By Name: Alexandro Constantino nd Name: doxycycl ine monohydr ate Send Method: E-Prescr ibed Sub s Allowed: subs OK Medic ationGen ericName : doxycycl ine monohydr ate Not Available Not Available Not Available dapsone 100 mg tablet TAKE ONE TABLET BY MOUTH EVERY DAY 06/09 completed Not Available Not Available Not Available Culturell e 10 billion cell capsule by mouth 02/26 completed Medicati on ID: [id number] D uration Value: 30 Brand Name: Isaac remy Send Method: E-Prescr ibed Sub s Allowed: subs OK Speci al Instruct ion: one twice daily Me dication GenericN marge: Culturel le Not Available Not Available Not Available fluticaso ne propionat e 50 mcg/actua tion nasal spray,deandre pension ADMINIST ER ONE SPRAY INTO EACH NOSTRIL DAILY active Not Available Not Available No t Available calcium active Not Available Not Avail able Not Available rituximab active Not Available Not Carolyn ilable Not Available hydrochlo rothiazid e 12.5 mg tablet TAKE ONE TABLET BY MOUTH EVERY MORNING active Not Available Not Available No t Available Multi For Her active Not Available Not Available Not Available Vitals Date Recorded Body height Provider Name an d Address Organization Details Last Updated DateTime 06/09/2024 160.02 cm PAULA COMI [place] - [facility] 06/09/2024 10:42:42 Date Recorded Body height Body mass index (BMI) Body weight Provider Name and Address Organization Details Last Updated DateTime 11/16/2023 160.02 cm 24.8 kg/m2 20237.93 g Wojciech Salinas [place] - [facility] 11/16/2023 09:12:26 Date Recorded Body height Body mass index (BMI) Body weight Provider Name and Address Organization Details Last Updated DateTime 02/29/2024 160.02 cm 24.8 kg/m2 88549.93 g Wojciech Salinas [place] - [facility] 02/29/2024 09:03:24 Social History None recorded. Functional Status None recorded. Mental Status None recorded. Family History Nothing Reported. Medical History Condition Response Nasal or Sinus Problems Y Gynecological HistoryNo gynecological history recorded. Obstetrics History GPAL:G 0 P 0 0 0 0 Past Encounters Encounter ID Performer Location Encounter Start Date Encounter Closed Date Diagnosis/Indication Diagnosis SNOMED-CT Code Diagnosis ICD10 Code Diagnosis Note [id number] JACKY SCHNEIDER MD [facility] [address] [address] 11/16/2023 08:56:29 11/16/2023 09:46:51 Granulomatosis with polyangiitis 463244653 M31.30 Chronic rhinitis 3462586 6 J31.0 [id number] JACKY SCHNEIDER MD [facility] [address] [address] 02/29/2024 08:49:33 02/29/2024 09:27:11 Granulomatosis with polyangiitis 563184655 M31.30 Disorder of smell 575025 005 R43.8 Chronic rhinitis 7247832 6 J31.0 [id number] JACKY SCHNEIDER MD [facility] [address] [address] 06/09/2024 10:26:02 06/09/2024 11:19:43 Granulomatosis with polyangiitis 623178020 M31.30 Perforatio n of nasal septum 02383926 J34.89 Chronic rhinitis 2309412 6 J31.0 Health Concerns Section Related Observation LastModified by Organization Detai ls LastModified Time None Recorded Concern Status LastModified by Organization Details LastModified Time None Recorded Advance Directives Directive None Recorded Payers Encounter Date Sequence Insurance Name Policy Number Policy Ferreira Covered Member ID Ferreira Member ID Guarantor Name 11/16/2023 1 [place] [id number] Nahum Escobar [id number] Galina Escobar 02/29/2024 1 [facility] [id number] Galina Escobar [id number] Galina Escobar 06/09/2024 1 [employer]isto [employer] ([facility]) [id number] Galina Escobar [id number] Galina Escobar Notes Date Note Type Note Provider Name and Address Organization Details Recorded Time 11/16/2023 text/html Hx of GPA on Dap sone and Bactrim, Navage BID and occasional saline. Off prednisone as of SeptemberSense of smell is good.No CP or SOBNo hematuriaSeeing cold storage superintendent in 2 weeks JACKY SHAVER MD [address] [facility] [place], [place], [address], [place] [facility] 11/16/2023 09:44:21 02/29/2024 text/html Hx of biopsy pro brandy GPA. Presently on Rituximab..last infusion in April. Dapsone and Bactrim stopped by Dr Heard. Insurance denied infusion at [facility]. Now working on alternative Sense of smell improved JACKY SHAVER MD [address] [facility] [place],[facility], [place], [address], [place] [facility] 02/29/2024 09:27:18 06/09/2024 text/html Hx of biopsy pro brandy GPA. Presently on Rituximab..last infusion in April 25 and . Was able to go to [place] with Dr Davis. Fluctuating sense of smellRecent normal eye exam. No neuropathy, skin lesions or hemoptysis JACKY SHAVER MD [address] [facility] [place],[facility], [place], [address], [place] [facility] 06/09/2024 11:17:31 OBGyn Episode No OBEpisode recorded.
== END 2024-06-22 09:20 | disposition home or self-care (01) ==
LOC: HO.HMCC 08:26
PROVIDERS: PCP Internal Medicine; Visit Provider Internal Medicine
DX: Z00.01 Encounter for general adult medical examination with abnormal findings (principal); Z12.4 Encounter for screening for malignant neoplasm of cervix; E78.5 Hyperlipidemia, unspecified; E67.3 Hypervitaminosis D; M31.30 Wegener's granulomatosis without renal involvement; I10 Essential (primary) hypertension

== ENCOUNTER → 2024-06-22 08:25 | Outpatient (BNVA) | payer OTHER, SELFPAY | PROVIDERS: PCP Internal Medicine; Visit Provider Internal Medicine | DX: Z00.01 Encounter for general adult medical examination with abnormal findings (principal); E78.5 Hyperlipidemia, unspecified; E67.3 Hypervitaminosis D; M31.30 Wegener's granulomatosis without renal involvement; I10 Essential (primary) hypertension; Z79.899 Other long term (current) drug therapy | CPT/HCPCS: 96127 ==

== ENCOUNTER 2024-09-21 06:07 | Outpatient (REF) | payer OTHER, SELFPAY ==
--- OUTSIDE RECORDS SUMMARY | 2024-09-21 06:10 | XMS_ITS | Clinical Summary ---
Author Organization [facility] Address [address] [place] [address] Phone Care Team Providers Care Classroom Technology Technician Name Role Phone Juany Victoria MD Primary Care Provider [phone] Family History Medical History Relation Name Comments [...] 02/23/2022 Social Influencers of Health Screening 02/23/2022 COVID-19 Vaccine (8 - Moderna risk season) 2024 01/29/2024, 12/23/2022, 01/22/2022, Additional history exists Influenza Vaccine (Season Ended) 2024 12/23/2022, 01/22/2022, 01/15/2021, Additional history exists Hypertension/CHF/CAD Annual BMP Blood Test 04/25/2025 04/25/2024, 12/14/2023, 07/29/2023, Additional history exists Breast Cancer Screening 06/09/2026 06/10/19, 06/08/2023, 06/02/2022, Additional history exists RSV Immunization Adult Patients (1 - 1-dose 75+ series) 2036 Hepatitis C Screening Completed 03/20/2023 HIB Vaccines Aged Out No longer eligi [...] age to complete this topic Meningococcal B Vaccine Aged Out No l onger eligible based on patient's age to complete [...] for breast cancer from Last 3 Months or Most Recently Relevant to Health Maintenance Results * MG Mammo Digital Screening w Gael bilat (06/09/2024 1:22 PM EDT) Anatomical Region Laterality Modality Breast Bilateral Mammography 06/09/2024 2:21 PM EDT Impressions 06/09/2024 2:23 PM EDT No evidence of breast malignancy. BI-RADS CATEGORY: 1 - NEGATIVE RECOMMENDATION: Screening bilateral mammogram is recommended in 1 year. Mammo Location: [facility], [address] [place] [address], [id number], . -------- FINAL REPORT -------- Dictated By: Ellen Cotton Dictated Date: 06/09/2024 14:21 ET Assigned Physician: Ellen Cotton Reviewed and Electronically Signed By: Ellen Cotton Signed Date: 06/09/2024 14:23 ET Workstation ID: [id number] Transcribed By: Self Edit Transcribed Date: 06/09/2024 [...] evidence of suspicious mass or architectural distortion. No worrisome calcifications are evident. There has been no significant change from prior exam(s). BREAST DENSITY: B - [...] year. Mammo Location: [facility], [address] [place] [address], [address], . -------- FINAL REPORT -------- Dictated By: Ellen Cotton Dictated Date: 06/09/2024 14:21 ET Assigned Physician: Ellen Cotton Reviewed and Electronically Signed By: Ellen Cotton Signed Date: 06/09/2024 14:23 ET Workstation ID: [id number] Transcribed By: Self Edit Transcribed Date: 06/09/2024 14:21 ET us Self Referral Sppl IMG BI PROCEDURES Final Resul t from Last 3 Months or Most Recently Relevant to Health Maintenance Insurance [facility] Care Teams Classroom Technology Technician Relationship Specialty Start Date End Date Juany Victoria MD [address] [facility] [place] [address] PCP - General Internal Medicine 01/27/24
[2024-09-21 10:41] LABS: Cholesterol 288 mg/dL (<200); HDL Cholesterol 59 mg/dL (>40); Triglycerides 198 mg/dL (<150)
== END 2024-09-21 06:08 | disposition home or self-care (01) ==
LOC: HO.HMGCLDS 06:07
PROVIDERS: PCP Internal Medicine; Visit Provider Internal Medicine
DX: E78.5 Hyperlipidemia, unspecified (principal); E67.3 Hypervitaminosis D
CPT/HCPCS: 36415; 80061; 82306

== ENCOUNTER 2024-09-30 08:02 | Outpatient (AMB) | payer OTHER, SELFPAY ==
--- NOTE | 2024-09-30 07:58 | MHC.PC.OV ---
Intake Visit Reasons: 2m TV follow up Intake Note: Pt is having a telehealth visit to discuss lab results and possible med change Allergies No Known Allergies Allergy (Verified 09/30/24 08:31) Medication List - Last Reconciled 09/30/24 by Juany Victoria MD B-complex with vitamin C 1 tab PO DAILY calcium carbonate 600 mg PO DAILY fluticasone propionate 50 mcg/actuation (Allergy Relief (fluticasone)) 1 spray intranasal DAILY 3 months hydrochlorothiazide 12.5 mg PO QAM Tobacco use date assessed: 09/30/24 Dental Screening Dental Screen Date: 09/30/24 Did you have a dental visit in the last 12 months?: Yes Did you have a dental problem in the last 6 months where you did not have access to dental care?: Yes Was dental information given to patient?: Patient has dentist HPI 2m TV follow up HPI Details Telehealth visit made with 64-year-old lady postmenopausal, with history of hypertension, currently on hydrochlorothiazide, here today for follow-up on results of recent fasting labs done. She has mixed dyslipidemia currently taking fish oil supplements, and had recent fasting labs which showed lower triglyceride levels but still not at goal and elevated LDL cholesterol unchanged from previous check, despite adhering to a low-cholesterol diet and getting regular exercise. Denies any chest pain, shortness of breath, no history of any coronary artery disease, no lightheadedness or headache. Her vitamin-D level also is still elevated despite stopping taking vitamin-D with calcium and only just taking a multivitamin . Has not yet received a scheduled for her bone density scan. She is up-to-date with her screening mammogram done at [facility] earlier this year. Requesting an order to get her bone density scan done at [facility] together with her mammogram next year in May 2025. [facility] Medical History (Updated 09/30/24 @ 08:36 by Juany Victoria MD) Hypervitaminosis D Mixed dyslipidemia Essential hypertension Granulomatosis with polyangiitis of nose Deviated nasal septum Environmental and seasonal allergies Tear of left meniscus as current injury Dyslipidemia History of dysfunctional uterine bleeding Surgical History Hx of colonoscopy H/O prior ablation treatment History of tubal ligation Family History Father Yesi Gehrig disease Mother No problems noted. Brother CAD (coronary artery disease) Myocardial infarction Sister COPD (chronic obstructive pulmonary disease) Smoker Breast cancer Sister HTN (hypertension) Son Asthma Mental health disorder Sister No problems noted. Brother No problems noted. Son No problems noted. Social History Housing: House Alcohol intake: current Patient Tobacco Use Status: Former Tobacco user e-Cigarette/Vaping Use: Never Used service: No Current occupational status: employed Cognitive needs: No Hearing needs: No Vision needs: Yes Questionnaire Thrive Questionnaire Date Thrive assessed: 06/16/24 I am a: Patient What is your living situation today?: I have a steady place to live Within the past 12 months, did the food you bought not last and you didn't have the money to get more?: Never true Within the past 12 months, did you worry whether your food would run out before you got money to buy more?: Never true Do you have trouble paying for medicines?: No Do you have trouble getting transportation to medical appointments?: No Do you have trouble paying your heating and electricity bill?: No Do you have trouble taking care of your child, family member or friend?: No Do you have trouble with day-to-day activities such as bathing, preparing meals, shopping, managing finances, etc.?: No Are you currently unemployed and looking for a job?: No Are you interested in more education?: No Please select the resources that you would like help with: None Currently or been in a relationship where the following occur: No concerns reported THRIVE Score: 0 ERIC-7 AMB Questionnaire ERIC-7 Date ERIC - 7 assessed: 06/22/24 Source: Developed by Drs. Ronald Wayne, Sirena Wilson, Gael Olson and colleagues, with an educational meli from [employer]. Review of Systems Const Denies body aches, Denies fatigue, Denies frequent falls, Denies poor appetite and Denies weakness Eyes Reports no additional complaints ENT Reports no additional complaints Card Denies chest pain, Denies irregular heart rhythm and Denies lightheadedness Resp Reports no additional complaints GI Reports no additional complaints Reports no additional complaints Musc Denies loss of height and Denies muscle weakness Neuro Denies frequent falls, Denies lack of coordination, Denies focal weakness, Denies Sensory deficit (Neuro) and Denies weakness Psych Reports no additional complaints Endo Reports no additional complaints and Denies fatigue Justin/Lymph Reports no additional complaints Aller/Immun Reports no additional complaints Physical exam (Primary Care) Tobacco/Smoking Status: Tobacco use Status Tobacco use date assessed 09/30/24 09/30/24 08:00 Patient Tobacco Use Status Former Tobacco user 09/30/24 08:00 e-Cigarette/Vaping Use Never Used 09/30/24 08:00 Thrive Assessment: Date of Thrive Assessment Date Thrive assessed 06/16/24 09/30/24 08:00 Currently or been in a relationship where the following occur: No concerns reported Neuro Sensory Exam: No Sensory deficit (Neuro) Telehealth Telehealth Telehealth Platform: [employer] Location of provider rendering services: practice address Location of patient: address on file Patient Identification confirmed using: Name, : Yes Telehealth method: video Patient verbally consented to treatment: Yes Patient verbally consented to billing insurance company: Yes Patient informed of any privacy concerns related to visit: Yes Minutes spent on Phone/Video with Pt.: 20 Results Reviewed Results Reviewed: Name: Galina Escobar Age/Sex: 64/F : 1960 Unit#: [id number] Attend Dr: Juany Victoria MD Re09/21/24 Status: DEP REF Location: [facility] Disch: SPEC : [id number] MILLICENT: 09/21/24 STATUS: COMP REQ : [id number] RECD: 09/21/[address]: Juany Victoria MD COMP: 09/21/24 ENTERED: 09/21/[address]: ORDERED: Lipid Panel, Vitamin D 25-OH Test Result Flag Reference Triglyceride 198 H <150 mg/dL Desirable Triglyceride: less than 150 mg/dL Borderline High Triglyceride 150-199 mg/dL High Triglyceride: 200-499 mg/dL Very High Triglyceride: greater than or equal to 5OO mg/dL Cholesterol 288 H <200 mg/dL Desirable Cholesterol: less than 200 mg/dL Borderline High Cholesterol: 200-239 mg/dL High Cholesterol: greater than 239 mg/dL LDL Calculated 190 H <100 mg/dL Desirable LDL: less than 100 mg/dL Near Optimal/Above Optimal LDL: 110-129 mg/dL Borderline High LDL: 130-159 mg/dL High LDL: 160-189 mg/dL Very High LDL: greater than or equal to 190 mg/dL HDL 59 >40 mg/dL Desirable HDL: greater than 40 mg/dL Note: This HDL assay may give artificially low results in patients with liver disease. Vitamin D 25-OH 131.2 >30 ng/mL Health Based Reference Values* < 20 ng/mL Deficient 20-30 ng/mL Insufficient > 30 ng/mL Sufficient Coding Level of Care Code Tele Est Pt Level 4 (49583) Diagnoses Mixed dyslipidemia E78.2 Post-menopause Z78.0 Hypervitaminosis D E67.3 Assessment & Plan Assessment & Plan (1) Mixed dyslipidemia: Code(s): E78.2 - Mixed hyperlipidemia Category: Medical Plan: Will start her on rosuvastatin 5 mg to take once a day, together with her fish oil supplements 2 capsules twice a day. Advised to initially start taking rosuvastatin 1 tablet every other day for at least a week , and increase it to 5 mg daily if tolerated. Reminded to take Co Q10 100 mg daily when taking statin. Repeat another fasting lipid panel in 3 months prior to next appointment (2) Post-menopause: Code(s): Z78.0 - Asymptomatic menopausal state Plan: Ordered a bone density scan baseline to be done together with her mammogram in [facility] ,per patient request, in May 2025 (3) Hypervitaminosis D: Code(s): E67.3 - Hypervitaminosis D Category: Medical Plan: Advised to cut back on taking her multivitamin to every other day and will repeat another vitamin-D level in 3 months Orders: Orders Creatine Kinase Total 12/24/24 E67.3 - Hypervitaminosis D, E78.2 - Mixed hyperlipidemia Vitamin D 25-OH Total 12/24/24 E67.3 - Hypervitaminosis D, E78.2 - Mixed hyperlipidemia Lipid Panel 12/24/24 E67.3 - Hypervitaminosis D, E78.2 - Mixed hyperlipidemia XR DEXA axial skeleton Today Z13.820 - Encounter for screening for osteoporosis, Z78.0 - Asymptomatic menopausal state Medications: New coenzyme Q10 100 mg PO DAILY 90 caps 2RF 3 months rosuvastatin 5 mg PO DAILY 90 tabs 2RF 3 months E78.2 - Mixed hyperlipidemia
--- OUTSIDE RECORDS SUMMARY | 2024-09-30 08:05 | XMS_ITS | Data Portability ---
Author Organization [place] - [facility], Allergy Address [address] [address] Care Team Providers Care Collection Systems Worker Name Role Phone SUNITA MILLER Primary Care Provider [phone] DAVID ANAYA OTHER DARRIN HEARD OTHER Assessment Encounter Date Assessment Date Assessment LastModified by Organization Details LastModified Time 11/16/2023 11/16/2023 Overall patient appears to be doing quite well having transitioned off of prednisone. She continues on dapsone and Bactrim. No bleeding. Sense of smell is good. No skin involvement, hematuria or hearing change. She will follow-up with Dr. Candelario in a couple of weeks to discuss [...] is also working on something in the [place] area [email or web address] Not available 02/29/2024 09:22:03 08/31/2024 08/31/2024 Overall doing well with Rituximab infusion. Debridement performed but no granulation tissue. No other sx. See me in November [email or web address] Not available 08/31/2024 09:26:26 Plan of Treatment Reminders Order Date Submit Date Provider Last Modified By Organization Details Last Modified Time Details Appointments Establish ed 15 2024 09:00A M JACKY POPE MD Not available Not available Not available Establish ed 15 2025 08:45A M JACKY POPE MD Not available Not available Not available Lab None recorded. Referral None recorded. Procedures None recorded. Surgeries None recorded. Imaging None recorded. Medication Orders None recorded. Patient TargetsNo targets recorded. Patient Instructions Encounter Date Encounter Id Patient Instructions Last Modified By Organization Details Last Modified Time 06/09/2024 [id number] Patient with history of biopsy-proven GPA involving [...] will continue medical management locally and in [place]. I will see her back in 3 months. [email or web address] Not available 06/09/2024 11:15:26 08/31/2024 [id number] Patient with history of biopsy-proven GPA involving [...] will continue medical management locally and in [place]. I will see her back in 3 months. [email or web address] Not available 08/31/2024 09:19:07 Reason for Referral None Reported. Results Created Date Observation Date Name Description Value Unit Range Abnormal Flag Note LastModifiedBy Organization Detail LastModifiedTime 11/12/19 24 04/20/2023 imagi ng/di agnos tic resul t No observ ation record ed. [email or web address] Not Available 16:45:08 11/12/1912/30/2022 imagi ng/di agnos tic resul t No [...] Address Organization Details Recorded Time Chronic rhinitis 81041052 Active 2022 Chronic rhinitis; Note: Date Diagnosed: 08/27/2022 2:07 PM (J31.0) Not Available [facility] 02:14:37 Deviated nasal septum 885702887 Active 2022 Deviated nasal septum; Note: Date Diagnosed: 08/27/2022 2:07 PM (J34.2) Not Available [facility] 4 02:15:01 Disorder of smell 203635690 Active 2022 Other disturbanc es of smell and taste; Note: Date Diagnosed: 08/27/2022 2:07 PM (R43.8) Not Available [facility] 4 02:15:25 Disorder of taste 571146398 Active 2022 Other disturbanc es of smell and taste; Note: Date Diagnosed: 08/27/2022 2:07 PM (R43.8) Not Available [facility] 4 02:15:25 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 5 11:13:53 Problem Notes None recorded. Procedures Surgical History Date Name Laterality Status Provider Name and Address Organization Details Recorded Time 5 JMSNasal/Sinu s Endoscopy-LOS OR surgical cavities completed JACKY SHAVER MD [address],[facility], [place], [address], [place] - [facility] 08/31/2024 09:24:38 5 JMSNasal/Sinu s Endoscopy-LOS OR surgical cavities completed JACKY SHAVER MD [address],[place] [address], [place], [address], [place] [facility] 06/09/2024 11:12:13 4 JMSNasal/Sinu s Endoscopy-LOS OR surgical cavities completed JACKY SHAVER MD [address] [address], [place], [address], [place] [facility] 02/29/2024 09:27:12 4 JMSNasal/Sinu s Endoscopy-LOS OR surgical cavities completed JACKY SHAVER MD [address],[place] [facility], [place], [address], [place] [facility] 11/16/2023 09:42:22 Imaging Results None recorded. Procedure Notes None recorded. Medical Equipment None [...] oral solution 02/26 completed Medicati on ID: [id number] B rand Name: peg-elec trolyte soln Sen d Method: E-Prescr ibed Sub s Allowed: subs OK Medic ationGen ericName : peg-elec trolyte soln Not Available Not Available Not Available doxycycli ne monohydra te 100 mg capsule 1 capsule by mouth twice a day 05/11 completed Medicati on ID: [id number] D uration Value: 21 Prescri bed By [...] by mouth 02/26 completed Medicati on ID: [id number] D uration Value: 30 Brand Name: Culturel le Send Method: E-Prescr ibed Sub s Allowed: [...] Last Updated DateTime 06/09/2024 160.02 cm PAULA BROWNLEE [place] - [facility] 06/09/2024 10:42:42 Date Recorded Body height Body mass index (BMI) Body weight Provider Name and Address Organization Details Last Updated DateTime 08/31/2024 160.02 cm 25.7 kg/m2 29610.89 g Sultana Munoz [place] - [facility] 08/31/2024 09:02:27 Date Recorded Body height Body mass index (BMI) Body weight Provider Name and Address Organization Details Last Updated DateTime 11/16/2023 160.02 cm 24.8 kg/m2 17198.93 g [facility] 11/16/2023 09:12:26 Date Recorded Body height Body mass index (BMI) Body weight Provider Name and Address Organization Details Last Updated DateTime 02/29/2024 160.02 cm 24.8 kg/m2 66120.93 g Wojciech [facility] 02/29/2024 09:03:24 Social History None recorded. Functional Status None recorded. Mental Status None recorded. Family History Nothing Reported. Medical History Condition Response Nasal or Sinus Problems Y Gynecological HistoryNo gynecological history recorded. Obstetrics History GPAL:G 0 P 0 0 0 0 Past Encounters Encounter ID Performer Location Encounter Start Date Encounter Closed Date Diagnosis/Indication Diagnosis SNOMED-CT Code Diagnosis ICD10 Code Diagnosis Note [id number] JACKY SCHNEIDER MD [facility] [address] [address] 11/16/2023 08:56:29 11/16/2023 09:46:51 Granulomatosis with polyangiitis 701608638 M31.30 Chronic rhinitis 5314680 6 J31.0 [id number] JACKY SCHNEIDER MD [facility] [address] [address] 02/29/2024 08:49:33 02/29/2024 09:27:11 Granulomatosis with polyangiitis 346740112 M31.30 Disorder of smell 181333 005 R43.8 Chronic rhinitis 2758343 6 J31.0 [id number] JACKY SCHNEIDER MD [facility] [address] [address] 06/09/2024 10:26:02 06/09/2024 11:19:43 Granulomatosis with polyangiitis 163515443 M31.30 Perforatio n of nasal septum 16671698 J34.89 Chronic rhinitis 8178762 6 J31.0 [id number] JACKY SCHNEIDER MD [facility] [address] [place] [address] 08/31/2024 08:40:03 08/31/2024 09:25:14 Granulomatosis with polyangiitis 216260330 M31.30 Perforatio n of nasal septum 35120282 J34.89 Chronic rhinitis 0846222 6 J31.0 Health Concerns Section Related Observation LastModified by Organization Detai ls LastModified Time None Recorded Concern Status LastModified by Organization Details LastModified Time None Recorded Advance Directives Directive None Recorded Payers Insurance Date Sequence Insurance Name Policy Number Policy Ferreira Covered Member ID Ferreira Member ID Guarantor Name 08/31/2024 1 [employer] (PP[employer]) [id number] Galina Escobar [id number] 1 Galina Escobar 02/22/2024 1 [employer] (PPO) [id number] Nahum Escobar [id number] Galina Escobar Notes Date Note Type Note Provider Name and Address Organization Details Recorded Time 11/16/2023 text/html Hx of GPA on Dap sone and Bactrim, Navage BID and occasional saline. Off prednisone as of SeptemberSense of smell is good.No CP or SOBNo hematuriaSeeing event manager in 2 weeks JACKY SHAVER MD [address] [place] [address], [phone], [facility] - [facility] 11/16/2023 09:44:21 02/29/2024 text/html Hx of biopsy pro brandy GPA. Presently on Rituximab..last infusion in April. Dapsone and Bactrim stopped by Dr Heard. Insurance denied infusion at [facility]. Now working on alternative Sense of smell improved JACKY SHAVER MD [address] [place] [address], [phone], [facility] - [facility] 02/29/2024 09:27:18 06/09/2024 text/html Hx of biopsy pro brandy GPA. Presently on Rituximab..last infusion in April 25 and . Was able to go to [facility] with Dr Davis. Fluctuating sense of smellRecent normal eye exam. No neuropathy, skin lesions or hemoptysis JACKY SHAVER MD [address] [place] [address],[place] [address], [place], [address], [place] [facility] 06/09/2024 11:17:31 08/31/2024 text/html Hx of biopsy pro brandy GPA. Presently on Rituximab..last infusion in April. Dapsone and Bactrim stopped by Dr Heard. Getting infusion at [facility] in of smell good. No bleeding or pain. No skin lesions or numbness. Seeing Dr Aguilar next week JACKY SHAVER MD [address] [facility], [place], [address], [facility] - [facility] 08/31/2024 09:28:50 OBGyn Episode No OBEpisode recorded.
--- OUTSIDE RECORDS SUMMARY | 2024-09-30 08:05 | XMS_ITS | Clinical Summary ---
Author Organization [facility] Address [address] [place] [address] Phone Care Team Providers Care Senior J2Ee Developer Name Role Phone Juany Victoria MD Primary Care Provider Family History Medical History Relation Name Comments [...] 12/23/2022, 01/22/2022, Additional history exists Influenza Vaccine (#1) 2024 , 01/22/2022, 01/15/2021, Additional history exists Hypertension/CHF/CAD [...] 5 Years) and At-Risk Patients (6 to 49 Years) Aged Out No longer eligible based [...] year. Mammo Location: [facility], [address] [place] [address], [id number], . -------- FINAL REPORT -------- Dictated By: Ellen Cotton Dictated Date: 06/09/2024 14:21 ET Assigned Physician: Ellen Cotton Reviewed and Electronically Signed By: Ellen Cotton Signed Date: 06/09/2024 14:23 ET Workstation ID: [id number] Transcribed By: Self Edit Transcribed Date: 06/09/2024 [...] year. Mammo Location: [facility], [address] [place] [address], [phone], . -------- FINAL REPORT -------- Dictated By: Ellen Cotton Dictated Date: 06/09/2024 14:21 ET Assigned Physician: Ellen Cotton Reviewed and Electronically Signed By: Ellen Cotton Signed Date: 06/09/2024 14:23 ET Workstation ID: [id number] Transcribed By: Self Edit Transcribed Date: 06/09/2024 14:21 ET us Self Referral Sppl IMG BI PROCEDURES Final Resul t from Last 3 Months or Most Recently Relevant to Health Maintenance Insurance [facility] Care Teams Senior J2Ee Developer Relationship Specialty Start Date End Date Juany Victoria MD [address] [facility] [place] [id number] PCP - General Internal Medicine 01/27/24
== END 2024-09-30 09:18 | disposition home or self-care (01) ==
LOC: HO.HMCC 08:02
PROVIDERS: PCP Internal Medicine; Visit Provider Internal Medicine
DX: E78.2 Mixed hyperlipidemia (principal); Z78.0 Asymptomatic menopausal state; E67.3 Hypervitaminosis D

== ENCOUNTER 2024-12-28 06:03 | Outpatient (REF) | payer OTHER, SELFPAY ==
--- OUTSIDE RECORDS SUMMARY | 2024-12-28 06:05 | XMS_ITS | Clinical Summary ---
Author Organization [facility] Address [address] [place] [phone] Phone Care Team Providers Care Insurance Plan Specialist Name Role Phone Juany Victoria MD Primary [...] 06/09/2024 1:14 PM EDT Plan of Treatment Upcoming Encounters Date Type Department Care Team (Late st Contact Info) Description 06/12/2025 7:15 AM EDT Appointment [facility] [address] [address] Health Maintenance Due Date Last Done Comments Colorectal Cancer Screening: Colonoscopy 1961 DTaP,Tdap,and Td Vaccines (1 - Tdap) 1980 Cervical Cancer Screening: Pap Smear 1982 Pneumococcal Vaccine: 50+ Years (1 of 1 - PCV) 06/25/2011 Zoster Vaccines (1 of 2) 06/25/2011 Cholesterol Screening (Lipid Panel) 02/23/2022 HIV Screening 02/23/2022 Social Influencers of Health Screening 02/23/2022 Depression Screening 03/23/2024 Influenza Vaccine (#1) 2024 , 01/22/2022, 01/15/2021, [...] year. Mammo Location: [facility], [address] [place] [address], [phone], . -------- FINAL REPORT -------- Dictated By: Ellen Cotton Dictated Date: 06/09/2024 14:21 ET Assigned Physician: Ellen Cotton Reviewed and Electronically Signed By: Ellen Cotton Signed Date: 06/09/2024 14:23 ET Workstation ID: [id number] Transcribed By: Self Edit Transcribed Date: 06/09/2024 [...] year. Mammo Location: [facility], [address] [place] [address], [id number], . -------- FINAL REPORT -------- Dictated By: Ellen Cotton Dictated Date: 06/09/2024 14:21 ET Assigned Physician: Ellen Cotton Reviewed and Electronically Signed By: Ellen Cotton Signed Date: 06/09/2024 14:23 ET Workstation ID: [id number] Transcribed By: Self Edit Transcribed Date: 06/09/2024 14:21 ET us Self Referral Sppl IMG BI PROCEDURES Final Resul t from Last 3 Months or Most Recently Relevant to Health Maintenance Insurance [facility] Care Teams Insurance Plan Specialist Relationship Specialty Start Date End Date Juany Victoria MD [address] [facility] [place] [id number] PCP - General Internal Medicine 01/27/24
--- OUTSIDE RECORDS SUMMARY | 2024-12-28 06:05 | XMS_ITS | Clinical Summary ---
Author Organization [facility] Address [address] [place] [phone] Phone Care Team Providers Care Practice Assistant Name Role Phone Juany Victoria MD Primary Care Provider Allergies No known active allergies Medications fluticasone propionate (FLONASE) 50 mcg/actuation nasal spray 2 sprays by Nasal route daily. As needed 12/31/19 23 Active B-complex with vitamin C tablet Take 1 tablet by mouth daily. Active calcium carbonate-vitamin D3 500 mg-400 units per tablet Take 1 tablet by mouth daily. Active hydroCHLOROthiazid e (HYDRODIURIL) 12.5 MG tablet Take 12.5 mg by mouth every morning. 07/05/19 24 Active tretinoin (RETIN-A) 0.025 % cream Apply topically nightly at bedtime. 05/19/19 24 Active riTUXimab-abbs (TRUXIMA) 10 mg/mL injectionIndicatio ns:granulomatosis with polyangiitis,first started in March 2023 Inject 1,000 mg into the vein once. Indications: Mike's granulomatosis, first started in March 2023 03/23/19 24 Active sodium chloride (OCEAN) 0.65 % nasal sprayIndications:n kate cavity affected from granulomatosis 1 spray by Nasal route as needed for congestion. Indications: nasal cavity affected from granulomatosis Active Active Problems Problem Noted Date Diagnosed Date Arthritis of both hands 09/07/2024 Assessment & Plan (09/07/2024 11:11 AM EDT): Joint protection, energy conservation. Gentle, regular exercise routine. Avoid falls, injuries, overuse. If symptoms increase she may benefit from topical cream such as Arnica, Biofreeze, Aspercreme versus medicated patches such as salonpas, icy hot patch 2-3 times daily and if necessary at bedtime x 3 weeks. Encounter for monitoring rituximab therapy 03/11 Assessment & Plan (09/07/2024 11:03 AM EDT): Reviewed need for close monitoring and communication with NA fevers or signs of infection. Reviewed need for informing any new [employer], [employer] about treatment with rituximab particularly in emergency situations. She is reminded that vaccinations if needed should be administered no earlier than 2-4 weeks prior to next scheduled rituximab dose administered every 6 months. Assessment & Plan (03/22/2024 8:50 PM EST): Reviewed need for close monitoring and communication with NA fevers or signs of infection. Reviewed need for informing any new [employer], [employer] about treatment with rituximab particularly in emergency situations. She is reminded that vaccinations if needed should be administered no earlier than 2-4 weeks prior to next scheduled rituximab dose administered every 6 months. Primary hypertension 03/11/2024 Assessment & Plan (09/07/2024 11:03 AM EDT): Encouraged to continue antihypertensive therapy and periodic checkups ideally: 1-about the same time of the day, 2-after 30 minutes rest, 3-on the same arm, 4-by the same equipment. Seek medical advice if readings repeatedly elevated >120/80 mmHg. Assessment & Plan (03/22/2024 8:46 PM EST): Encouraged to continue antihypertensive therapy and periodic checkups ideally: 1-about the same time of the day, 2-after 30 minutes rest, 3-on the same arm, 4-by the same equipment. Seek medical advice if readings repeatedly elevated >120/80 mmHg. Granulomatosis with polyangiitis with vasculitis 03/20/2023 Assessment & Plan (09/07/2024 11:14 AM EDT): Clinically and laboratory [facility] as of 04/25/2024 appears stable. She is due for every 6 months maintenance rituximab dose in October 2024: On 10/24 and on 11/07/2024. New set of lab work requested and orders for maintenance rituximab dose renewed into Rheumatology Therapy Plans. Instructed to call if problems or questions otherwise return in 7 months . Assessment & Plan (03/22/2024 8:49 PM EST): Clinically appears stable however is overdue for every 6 months maintenance rituximab dose that was supposed to be infused in October 2023. New set of lab work requested and orders for maintenance rituximab dose put into Rheumatology Therapy Plans in addition to referral to [facility] to schedule infusion once approved by her insurance. Assessment & Plan (08/19/2023 3:16 PM EDT): Granulomatosis with polyangiitis currently stable after 2 doses of Rituxan. Will check some labs today and we will plan to decrease prednisone to 5 mg in 2 weeks. Will further reduce prednisone if able. Continue with Bactrim and dapsone. Assessment & Plan (04/29/2023 9:53 AM EST): Michela is doing well with regard to granulomatosis with polyangiitis, after induction therapy with 2 doses of Rituxan. Will get some lab work today. If her labs on acceptable we can drop her prednisone dose to 10 mg daily and have her continue with Bactrim, dapsone and Flonase. She should also continue with daily calcium and vitamin D. I advised her to try and avoid people who are obviously sick. She should also continue wearing her mask in crowded places. She will be seeing Dr. Linda on the . I would appreciate his input on whether we should start Michela on a maintenance regimen of azathioprine 1 tablet twice a day. I will otherwise see her in follow-up in 3 months. Assessment & Plan (03/20/2023 11:14 AM EST): Galina has granulomatosis with polyangiitis with significant sinus involvement. She also has erosions with soft tissue encroaching on the medial aspects of both orbits. Given the sinus involvement and the orbital erosions I classify her disease as severe. She should undergo induction therapy with Rituxan at 1000 mg IV, 2 doses 15 days apart. Evidence to support this was obtained from the RAVE Trial (Rituxan in ANCA-Associated Vasculitis). After induction therapy we can start her on azathioprine 50 mg twice a day if needed. Prior to induction with Rituxan I am also starting her on 30 mg of prednisone by mouth daily for 4 weeks. Also provide PCP prophylaxis with single strength Bactrim and 100 mg/day of dapsone. I have called patient and discussed her treatment regimen with her. Will get insurance approval and start induction therapy as soon as we can. Encounters Date Type Department Care Team Description 11/07/2024 8:30 AM EDT Infusion [facility]fusion [address] [address] Dayanna Silverman MD Granulomatosis with polyangiitis with vasculitis (Primary Dx) 10/24/2024 8:30 AM EDT Infusion [facility] Infusion [address] [address] Dayanna Silverman MD Granulomatosis with polyangiitis with vasculitis (Primary Dx) 10/17/2024 7:49 AM EDT - 10/17/2024 11:59 PM EDT Hospital Encounter [facility] Laboratory [address] [place] [phone] Dayanna Silverman MD Discharge Disposition: Home or Self Care from Last 3 Months Family History Medical History Relation Comments Coronary artery disease Brother ALS Father No Known Problems Mother Relation Status Comments Brother Father Mother Social History Tobacco Use Types Packs/Day Years Used Date Smoking Tobacco: Former Cigarettes Smokeless Tobacco: Never Tobacco Cessation:Counseling Given: Not Answered Alcohol Use Standard Drinks/Week Comments Yes 0 (1 standard drink = 0.6 oz pur e alcohol) socially Education Answer Date Recorded Are you interested in more education? Not on jaja e 03/02/2023 Are you concerned about learning? Not on file 03/02/2023 No 03/02/2023 No 03/02/2023 Digital Access Answer Date Recorded No 03/02/2023 No 03/02/2023 Reliable internet access at home? Not on file 03/02/2023 Device with a working camera? Not on file Comments Unknown Sex and Gender Information Value Date Recorded Sex Assigned at Not on file Legal Sex Female 2:14 PM EST Gender Identity Not on file Sexual Orientation Not on file Last Filed Vital Signs Vital Sign Reading Time Taken Comments Blood Pressure 145/79 11/07/2024 1:42 PM EDT Pulse 77 11/07/2024 1:42 PM EDT Temperature 36.7 C (98 F) 11/07/2024 1:42 PM EDT Respiratory Rate 18 11/07/2024 1:42 PM EDT Oxygen Saturation 96% 11/07/2024 1:42 PM EDT Inhaled Oxygen Concentration - - Weight 68.1 kg (150 lb 3.2 oz) 09/07/2024 10:36 AM EDT Height 160 cm (5' 3 ) 09/07/2024 10:36 AM EDT Body Mass Index 26.61 09/07/2024 10:36 AM EDT Plan of Treatment Upcoming Encounters Date Type Department Care Team (Late st Contact Info) Description 04/12/2025 8:00 AM EST Office Visit [facility] Rheumatology [address] [place] [address] Dayanna Silverman MD [address] [facility], [address] [place] [address] [email or web address] Health Maintenance Due Date Last Done Comments Adult Td,Tdap Booster 1961 LIPID PANEL 1961 DEPRESSION SCREENING 1973 SMOKING Hx and SMOKELESS TOBACCO SCREENING 1974 HIV ONE-TIME SCREENING (18-65 YEARS) 06/25/1979 ZOSTER VACCINES (1 of 2) 1980 PAP SMEAR 1982 COLOGUARD 2006 COLONOSCOPY 2006 COLORECTAL CANCER SCREENING 2006 FIT TEST 2006 FOBT 2006 SIGMOIDOSCOPY 2006 VIRTUAL COLONOSCOPY 2006 RSV VACCINE (1 - Risk 50-74 years 1-dose series) 06/25/2011 INFLUENZA VACCINE (#1) 2024 3, 01/22/2022, 01/15/2021, Additional history exists COVID-19 VACCINE ( season) 2024 01/29/2024, 12/23/2022, 01/22/2022, Additional history exists BLOOD PRESSURE 05/10/2025 11/07/2024 POTASSIUM LEVEL 10/17/2025 10/17/2024, 02/0 05/2024, 12/14/2023, Additional history exists MAMMOGRAM 06/09/2026 06/09/2024, 06/09/2024 SCREENING FOR DIABETES 10/18/2027 10/17/2024 HEPATITIS C SCREENING Completed 03/20/2023 PNEUMOCOCCAL VACCINES (50+ years) Completed 09/28/2024 HEPATITIS A VACCINES Aged Out No long er eligible based on patient's age to complete this topic HIB VACCINES Aged Out No longer eligi ble based on patient's age to complete this topic MENINGOCOCCAL VACCINES (ACWY) Aged Out No longer eligible based on patient's age to complete this topic MENINGOCOCCAL VACCINES (B) Aged Out N o longer eligible based on patient's age to complete this topic Medical Devices Not on file Procedures Procedure Name Priority Date/Time Associated Diagnosis Comments TOTAL PROTEIN CREATININE RATIO, RANDOM URINE Routine 10/17/2024 8:14 AM EDT Granulomatosis with polyangiitis with vasculitis Encounter for monitoring rituximab therapy Primary hypertension COMPREHENSIVE METABOLIC PANEL Routine 10/17/2024 8:06 AM EDT Granulomatosis with polyangiitis with vasculitis Encounter for monitoring rituximab therapy C-REACTIVE PROTEIN Routine 10/17/2024 8: 06 AM EDT Granulomatosis with polyangiitis with vasculitis Encounter for monitoring rituximab therapy SEDIMENTATION RATE (ESR) Routine 10/17/2024 8:06 AM EDT Granulomatosis with polyangiitis with vasculitis Encounter for monitoring rituximab therapy CBC AND DIFFERENTIAL Routine 10/17/2024 8:06 AM EDT Granulomatosis with polyangiitis with vasculitis Encounter for monitoring rituximab therapy ANTI-NEUTROPHIL CYTOPLASMIC ANTIBODY (ANCA) Routine 10/17/2024 8:06 AM EDT Granulomatosis with polyangiitis with vasculitis Encounter for monitoring rituximab therapy PROTEINASE 3 ANTIBODY, IGG Routine 10/17/2024 8:06 AM EDT Granulomatosis with polyangiitis with vasculitis Encounter for monitoring rituximab therapy T+B CELL QUANT, FLW CYTO Routine 10/17/2024 8:06 AM EDT Granulomatosis with polyangiitis with vasculitis Encounter for monitoring rituximab therapy HEPATITIS C ANTIBODY, QUALITATIVE Routine 03/20/2023 3:02 PM EST Granulomatosis with polyangiitis with vasculitis from Last 3 Months or Most Recently Relevant to Health Maintenance Results * TOTAL PROTEIN CREATININE RATIO, RANDOM URINE (10/17/2024 8:14 AM EDT) URINE TOTAL PROTEIN 5.0 mg/dL [facility] URINE CREATININE 76 mg/dL [facility] URINE TP CRE RATIO 0.07 0 - 0.19 [facility] Urine (Urine) 10/17/2024 8:1 4 AM EDT 10/17/2024 8:18 AM EDT us Dayanna Silverman MD URINE ORDERABLES Final R esult Performing Organization Address City/[facility]/ZIP Co de Phone Number [facility] [address] [place], [place] [id number] * PROTEINASE 3 ANTIBODY, IGG (10/17/2024 8:06 AM EDT) PROTEINASE 3 AB <0.2 <0.4 (Negative) U [facility] Blood 10/17/2024 8:06 AM EDT 10/17/2024 8:12 AM EDT us Dayanna Silverman MD LAB BLOOD ORDERABLES Fin al Result [facility] [address] [place] [address] * (ABNORMAL) T+B cell quant, flow cytometry (10/17/2024 8:06 AM EDT) Pathologist [facility] CD45 LYMPH COUNT 1.23 0.82 - 2.84 th/[facility] LAB MED/PATH [address] %CD3 (T CELLS) 65 58 - 86 % [facility] MED/PATH [address] %CD19 (B CELLS) 0(L) 3 - 24 % [facility] MED/PATH [address] %CD16+CD56 (NK CELLS) 34(H) 5 - 28 % [facility] MED/PATH [address] %CD4 (HELPER CELLS) 55 32 - 64 % [facility] MED/PATH [address] %CD8 (SUPPR CELLS) 10 8 - 40 % [facility] MED/PATH [address] CD3 (T CELLS) 800 550 - 2,202 cells/mc L [facility] MED/PATH [address] CD19 (B CELLS) 0(L) 45 - 409 cells/mc L [facility] MED/PATH [address] CD16+CD56 (NK CELLS) 421 59 - 513 cells/mc L [facility] MED/PATH [address] CD4 (HELPER CELLS) 683 365 - 1,437 cells/mc L [facility] MED/PATH [address] CD8 (SUPPR CELLS) 118 80 - 846 cells/mc L [facility] MED/PATH [address] H/S RATIO 5.8 >=0.9 [facility] MED/PATH [place] Comment: (NOTE) ADDITIONAL INFORMATION This test was developed using an analyte specific reagent. Its performance characteristics were determined by [facility] in a manner consistent with CLIA requirements. This test has not been cleared or approved by the U.S. Food and Drug Administration. COMMENT Test component not applicable or not reported. [facility] MED/[facility] [place] Blood 10/17/2024 8:06 AM EDT 10/17/2024 8:12 AM EDT us Dayanna Silverman MD LAB BLOOD ORDERABLES Fin al Result [facility] [address] [place] [address] * Comprehensive metabolic panel (10/17/2024 8:06 AM EDT) Pathologist [facility] SODIUM 141 133 - 146 mmol/L [facility] POTASSIUM 4.5 3.3 - 5.1 mmol/L [facility] CHLORIDE 103 96 - 108 mmol/L [facility] CO2 28 21 - 35 mmol/L [facility] BUN 13 6 - 19 mg/dL [facility] CREATININE 0.80 0.5 - 1.5 mg/dL [facility] GLUCOSE 98 70 - 99 mg/dL [facility] ALBUMIN 4.3 3.9 - 4.8 g/dL [facility] TOTAL PROTEIN 6.9 6.5 - 8.0 g/dL [facility] CALCIUM 10.3 8.4 - 10.3 mg/dL [facility] ALKALINE PHOSPHATASE 92 39 - 117 U/L [facility] TOTAL BILIRUBIN 0.4 0.0 - 1.2 mg/dL [facility] AST 22 0 - 37 U/L [facility] ALT 20 0 - 40 U/L [facility] GLOBULIN 2.6 1 - 4.8 g/dL [facility] EGFR 83 >59 mL/min/1.7 3m2 [facility] Comment:Estimated glomerular filtration rate calculated using the CKD-EPI refit equation. ANION GAP 15 10 - 20 mmol/L [facility] Blood 10/17/2024 8:06 AM EDT 10/17/2024 8:12 AM EDT us Dayanna Silverman MD LAB BLOOD ORDERABLES Fin al Result [facility] [address] [place] [address] * Anti-Neutrophil Cytoplasmic Antibody (ANCA) (10/17/2024 8:06 AM EDT) Pathologist [facility] C-ANCA Negative Negative [facility] P-ANCA Negative Negative [facility] Comment: (NOTE) Negative for cANCA and pANCA patterns by immunofluorescence. ADDITIONAL INFORMATION This test was developed and its performance characteristics determined by [facility] in a manner consistent with CLIA requirements. This test has not been cleared or approved by the U.S. Food and Drug Administration. Blood 10/17/2024 8:06 AM EDT 10/17/2024 8:12 AM EDT Dayanna Silverman MD LAB BLOOD ORDERABLES Fin al Result [facility] [address] [place] [address] * Sedimentation rate (ESR) (10/17/2024 8:06 AM EDT) ESR 3 0 - 30 mm/h [facility] Blood 10/17/2024 8:06 AM EDT 10/17/2024 8:12 AM EDT Dayanna Silverman MD LAB BLOOD ORDERABLES Fin al Result Performing Organization Address City/[facility]/ZIP Co de Phone Number [address] [address] * (ABNORMAL) CBC and differential (10/17/2024 8:06 AM EDT) WBC 6.62 4.00 - 11.00 K/uL [facility] RBC 4.44 4.00 - 5.20 M/uL [facility] HGB 13.2 12.0 - 16.0 g/dL [facility] HCT 39.9 36.0 - 46.0 % [facility] PLT 309 150 - 450 K/uL [facility] MCV 89.9 80.0 - 100.0 fL [facility] MCH 29.7 27.0 - 31.0 pg [facility] MCHC 33.1 32.0 - 36.0 g/dL [facility] RDW 12.6 11.5 - 14.5 % [facility] MPV 10.4 8.4 - 12.0 fL [facility] NRBC 0.00 0.00 /100 WBCs [facility] ABSOLUTE NRBC 0.00 0.00 K/uL [facility] DIFF METHOD Auto [facility] NEUTS 61.3 48.0 - 76.0 % [facility] LYMPHS 22.4 18.0 - 41.0 % [facility] MONOS 9.2 4.0 - 11.0 % [facility] EOS 5.7(H) 0.0 - 5.0 % [facility] BASOS 1.2 0.0 - 1.5 % [facility] Granulocytes, immature (%) 0.2 0.0 - 0.9 % [facility] ABSOLUTE NEUTS 4.06 1.92 - 7.60 K/uL [facility] ABSOLUTE LYMPHS 1.48 0.72 - 4.10 K/uL [facility] ABSOLUTE MONOS 0.61 0.16 - 1.10 K/uL [facility] ABSOLUTE EOS 0.38 0.00 - 0.50 K/uL [facility] ABSOLUTE BASOS 0.08 0.00 - 0.15 K/uL [facility] Granulocytes, immature 0.01 0.00 - 0.09 K/uL [facility] Blood 10/17/2024 8:06 AM EDT 10/17/2024 8:12 AM EDT us Dayanna Silverman MD LAB BLOOD ORDERABLES Fin al Result Performing Organization Address City/State/[facility] Co de Phone Number [address] [address] * C-Reactive Protein (10/17/2024 8:06 AM EDT) C REACTIVE PROTEIN <3.0 0.0 - 4.0 mg/L [facility] Blood 10/17/2024 8:06 AM EDT 10/17/2024 8:12 AM EDT us Dayanna Silverman MD LAB BLOOD ORDERABLES Fin al Result [address] [address] * Hepatitis C antibody, qualitative (03/20/2023 3:02 PM EST) HCV NON-REACTIV E NON-REACTI VE [facility] Blood 03/20/2023 3:02 PM EST 03/20/2023 3:08 PM EST us Rivas Mccord MD LAB BLOOD ORDERABLES Fi nal Result Performing Organization Address [facility] Co de Phone Number [address] [address] from Last 3 Months or Most Recently Relevant to Health Maintenance Insurance [employer] PPO CIGNA PPO CIG PPO CIG PPO CIG PPO CIGNA PPO Care Teams Practice Assistant Relationship Specialty Start Date End Date Juany Victoria MD [address] [place] [address] PCP - General Internal Medicine 03/02/23 Additional Source Comments The information contained in this document represents components of the legal health record. It is not the complete legal health record.[facility]
--- OUTSIDE RECORDS SUMMARY | 2024-12-28 06:05 | XMS_ITS | Data Portability ---
Author Organization [place] - [facility], Allergy Address [address] [address] Care Team Providers Care Alarm Investigator Name Role Phone SUNITA MILLER Primary Care Provider [phone] DAVID ANAYA OTHER DARRIN HEARD OTHER Assessment [...] Not available 11/16/2023 09:41:09 02/29/2024 02/29/2024 Moderate crustin g removed. Mild inflammatory changes of the mucosa. Last rituximab infusion was April. We will try to coordinate for her to get an infusion locally. She is also working on something in the [place] area [email or web address] Not available 02/29/2024 09:22:03 08/31/2024 08/31/2024 Overall doing well with Rituximab infusion. Debridement performed but no granulation tissue. No other sx. 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 The patient is advised to continue regular follow-ups and maintain communication with her telephone station repairer regarding the flu vaccination to ensure no interactions with her current treatment. Her recent blood work and urine tests demonstrate normal results, and her kidneys and lungs are functioning well. She is encouraged to continue using Navage for nasal hygiene and to monitor for any changes in symptoms. The patient has a scheduled follow-up appointment in March, which aligns with her three-month follow-up schedule. If any changes occur, she is advised to reach out promptly. [email or web address] Not available 12/05/2024 09:08:52 Plan of Treatment Reminders Order Date Submit Date Provider Last Modified By Organization Details Last Modified Time Details Appointments Establish ed 15 2025 08:45A M JACKY POPE MD Not available Not available Not available Lab None recorded. Referral None recorded. Procedures None recorded. Surgeries None recorded. Imaging None recorded. Medication Orders None recorded. Patient TargetsNo targets recorded. Patient Instructions Encounter Date Encounter Id Patient Instructions Last Modified By Organization Details Last Modified Time 06/09/2024 [id number] Patient with history of biopsy-proven GPA involving [...] will continue medical management locally and in [place]. I will see her back in 3 months. [email or web address] Not available 06/09/2024 11:15:26 08/31/2024 [id number] Patient with history of biopsy-proven GPA involving [...] will continue medical management locally and in [place]. I will see her back in 3 months. [email or web address] Not available 08/31/2024 09:19:07 12/05/2024 [id number] - Continue using Navage for nasal hygiene. - Confirm with telephone station repairer regarding flu vaccination. - Monitor for any changes in symptoms and report promptly. - Follow up in March as scheduled. svetlana Not available 12/05/2024 09:08:52 Please note: Parts of this encounter note have been generated by AI based on audio conversation. Patient consent was required prior to utilizing this technology. Content review was required prior to finalizing the note. [email or web address] Not available 12/05/2024 09:08:52 Reason for Referral None Reported. Results Created [...] Address Organization Details Recorded Time Chronic rhinitis 50338535 Active 2022 Chronic rhinitis; Note: Date Diagnosed: 08/27/2022 2:07 PM (J31.0) Not Available [facility] 02:14:37 Deviated nasal septum 436934351 Active 2022 Deviated nasal septum; Note: Date Diagnosed: 08/27/2022 2:07 PM (J34.2) Not Available [facility] 02:15:01 Disorder of smell 142364120 Active 2022 Other disturbanc es of smell and taste; Note: Date Diagnosed: 08/27/2022 2:07 PM (R43.8) Not Available [facility] 4 02:15:25 Disorder of taste 413298666 Active 2022 Other disturbanc es of smell and taste; Note: Date Diagnosed: 08/27/2022 2:07 PM (R43.8) Not Available [facility] 4 02:15:25 Granuloma tosis with polyangii tis 238276257 Active 2023 Mike's granulomat osis NOS; Note: Date Diagnosed: 05/11/2023 11:20 AM (M31.30) Not Available [facility] 4 02:14:43 Perforati on of nasal septum 07364744 Active 2024 JACKY SCHNEIDER MD 100 [facility],[place] [address], [place], [address] , [place] - [facility] 11:13:53 Problem Notes None recorded. Procedures Surgical History Date Name Laterality Status Provider Name and Address Organization Details Recorded Time 5 JMSNasal/Sinu s Endoscopy-LOS OR surgical cavities completed JACKY SHAVER MD [address] [place] [address],[address], [address], [place] - [facility] 12/05/2024 09:07:42 5 JMSNasal/Sinu s Endoscopy-LOS OR surgical cavities completed JACKY SHAVER MD [address] [place] [address],[address], [address], [place] [facility] 08/31/2024 09:24:38 5 JMSNasal/Sinu s Endoscopy-LOS OR surgical cavities completed JACKY SHAVER MD [address] [place] [address],[address], [address], [place] [facility] 06/09/2024 11:12:13 4 JMSNasal/Sinu s Endoscopy-LOS OR surgical cavities completed JACKY SHAVER MD 100 [facility] [address], [place], [address], [facility] - [facility] 02/29/2024 09:27:12 4 JMSNasal/Sinu s Endoscopy-LOS OR surgical cavities completed JACKY SHAVER MD 100 [facility] 100, [place], [address], [place] [facility] 11/16/2023 09:42:22 Imaging Results None recorded. [...] oral solution 02/26 completed Medicati on ID: [id number] B rand Name: peg-elec trolyte soln Sen d Method: E-Prescr ibed Sub s Allowed: subs OK Medic ationGen ericName : peg-elec trolyte soln Not Available Not Available Not Available doxycycli ne monohydra te 100 mg capsule 1 capsule by mouth twice a day 05/11 completed Medicati on ID: [id number] D uration Value: 21 Prescri bed By [...] by mouth 02/26 completed Medicati on ID: [id number] D uration Value: 30 Brand Name: Isaac remy Send Method: E-Prescr ibed Sub s Allowed: subs OK Speci al Instruct ion: one twice daily Me dication GenericN marge: Isaac remy Not Available Not Available Not Available fluticaso ne propionat e 50 mcg/actua tion nasal spray,deandre pension ADMINIST ER ONE SPRAY INTO EACH NOSTRIL DAILY active Not Available Not Available No t Available calcium active Not Available Not Avail able Not Available rituximab 12/05 completed Not Available Not Available Not Available hydrochlo rothiazid e 12.5 mg tablet TAKE ONE TABLET BY MOUTH EVERY MORNING active Not Available Not Available No t Available Multi For Her active Not Available Not Available Not Available Truxima active Not Available Not Avail able Not Available Vitals Date Recorded Body height Provider Name an d Address Organization Details Last Updated DateTime 06/09/2024 160.02 cm PAULA KEM [place] - [facility] 06/09/2024 10:42:42 Date Recorded Body height Body mass index (BMI) Body weight Provider Name and Address Organization Details Last Updated DateTime 08/31/2024 160.02 cm 25.7 kg/m2 69532.89 g Sultana Munoz [place] - [facility] 08/31/2024 09:02:27 Date Recorded Body height Body mass index (BMI) Body weight Provider Name and Address Organization Details Last Updated DateTime 11/16/2023 160.02 cm 24.8 kg/m2 81228.93 g Wojciech Salinas [place] - [facility] 11/16/2023 09:12:26 Date Recorded Body height Body mass index (BMI) Body weight Provider Name and Address Organization Details Last Updated DateTime 12/05/2024 160.02 cm 24.8 kg/m2 04630.93 g Sultana Munoz [place] - [facility] 12/05/2024 08:59:26 Date Recorded Body height Body mass index (BMI) Body weight Provider Name and Address Organization Details Last Updated DateTime 02/29/2024 160.02 cm 24.8 kg/m2 30452.93 g Wojciech Salinas [place] - [facility] 02/29/2024 09:03:24 Social History None recorded. Functional Status None recorded. Mental Status None recorded. Family History Nothing Reported. Medical History Condition Response Nasal or Sinus Problems Y Gynecological HistoryNo gynecological history recorded. Obstetrics History GPAL:G 0 P 0 0 0 0 Past Encounters Encounter ID Performer Location Encounter Start Date Encounter Closed Date Diagnosis/Indication Diagnosis SNOMED-CT Code Diagnosis ICD10 Code Diagnosis IMO Codes Diagnosis Note [id number] JACKY SCHNIEDER MD [facility] [address] [address] 11/16/2023 08:56:29 11/16/2023 09:46:51 Granulomatosis with polyangiitis 945612946 M31.30 Chronic rhinitis 8159923 6 J31.0 [id number] JACKY SCHNEIDER MD [facility] [address] [address] 02/29/2024 08:49:33 02/29/2024 09:27:11 Granulomatosis with polyangiitis 637784758 M31.30 Disorder of smell 087912 005 R43.8 Chronic rhinitis 5366233 6 J31.0 [id number] JACKY SCHNEIDER MD [facility] [address] [address] 06/09/2024 10:26:02 06/09/2024 11:19:43 Granulomatosis with polyangiitis 741531973 M31.30 Perforatio n of nasal septum 93055549 J34.89 Chronic rhinitis 0001111 6 J31.0 [id number] JACKY SCHNEIDER MD [facility] [address] [address] 08/31/2024 08:40:03 08/31/2024 09:25:14 Granulomatosis with polyangiitis 922741768 M31.30 Perforatio n of nasal septum 59162226 J34.89 Chronic rhinitis 4366627 6 J31.0 [id number] JACKY SCHNEIDER MD [facility] [address] [place] [address] 12/05/2024 08:55:38 12/05/2024 09:13:13 Granulomatosis with polyangiitis 056338206 M31.30 Perforatio n of nasal septum 97431259 J34.89 Chronic rhinitis 9412013 6 J31.0 Health Concerns Section Related Observation LastModified by Organization Detai ls LastModified Time None Recorded Concern Status LastModified by Organization Details LastModified Time None Recorded Advance Directives Directive None Recorded Payers Insurance Date Sequence Insurance Name Policy Number Policy Ferreira Covered Member ID Ferreira Member ID Guarantor Name 12/05/2024 1 [employer] (PPO) [id number] Galina Escobar [id number] 1 Galina Escobar 02/22/2024 1 RICKIE (PPO) [id number] Nahum Escobar [id number] Galina Escobar Notes Date Note Type Note Provider Name and Address Organization Details Recorded Time 11/16/2023 text/html ROS as noted in the HPI Hx of GPA on Dapsone and Bactrim, Navage BID and occasional saline. Off prednisone as of SeptemberSense of smell is good.No CP or SOBNo hematuriaSeeing telephone station repairer in 2 weeks JACKY SHAVER MD [address], [address], [facility] - [facility] 11/16/2023 09:44:21 02/29/2024 text/html Hx of biopsy proven GPA. Presently on Rituximab..last infusion in April. Dapsone and Bactrim stopped by Dr Heard. Insurance denied infusion at [facility]. Now working on alternative Sense of smell improved JACKY SHAVER MD [address] [place] [address],[address], [address], [facility] - [facility] 02/29/2024 09:27:18 06/09/2024 text/html ROS as noted in the HPI Hx of biopsy proven GPA. Presently on Rituximab..last infusion in April 3 and . Was able to go to [facility] Dr Davis. Fluctuating sense of smellRecent normal eye exam. No neuropathy, skin lesions or hemoptysis JACKY SHAVER MD [address], [place], [address], [place] - [facility] 06/09/2024 11:17:31 08/31/2024 text/html Hx of biopsy proven GPA. Presently on Rituximab..last infusion in April. Dapsone and Bactrim stopped by Dr Heard. Getting infusion at [facility] in of smell good. No bleeding or pain. No skin lesions or numbness. Seeing Dr Aguilar next week JACKY SHAVER MD [address], [place], [address], [place] - [facility] 08/31/2024 09:28:50 12/05/2024 text/html Galina Escobar is a 64-year-old female who presents for follow-up regarding Mike's granulomatosis. She reports receiving rituximab infusions on October 24 and November 07, specifically the bioequivalent Truxima due to insurance coverage. She states that her kidneys and lungs have been functioning well, and her recent blood work, performed at [facility] prior to her infusion, demonstrated normal results. She denies any nasal bleeding or significant crusting and confirms regular use of Navage. She reports no vision difficulties and notes a recent visit to the eye doctor last week. She also confirms that her urine tests have been normal. She has received a pneumonia vaccination based on a prior conversation with Dr. Heard and is considering a flu vaccination, pending confirmation from her telephone station repairer to ensure no interactions with her current treatment. JACKY SHAVER MD [address],[facility] 100, [place], [address], [place] [facility] 12/05/2024 09:12:39 OBGyn Episode No OBEpisode recorded.
[2024-12-28 11:27] LABS: Cholesterol 223 mg/dL (<200); HDL Cholesterol 56 mg/dL (>40); Triglycerides 352 mg/dL (<150)
== END 2024-12-28 06:04 | disposition home or self-care (01) ==
LOC: HO.HMGCLDS 06:03
PROVIDERS: PCP Internal Medicine; Visit Provider Internal Medicine
DX: E78.2 Mixed hyperlipidemia (principal); E67.3 Hypervitaminosis D
CPT/HCPCS: 36415; 80061; 82306; 82550

== ENCOUNTER 2025-01-03 09:12 | Outpatient (AMB) | payer OTHER, SELFPAY ==
[2025-01-03 09:37] VITALS: BP 124/80; PULSE 68; RESP 16; TEMP 37.1; O2SAT 98; BMI 26.7
--- NOTE | 2025-01-03 09:37 | MHC.PC.OV ---
Vital Signs 01/03/25 09:37 Height 5 ft 3 in Weight 151 lb BMI 26.7 BP 124/80 Blood Pressure Location Rt brachial Position Sitting Respiration 16 Pulse 68 Pulse Source Pulse Oximeter Temp 98.7 F Temp Source Oral Pulse Oximetry (%) 98 Oxygen Delivery Method Room Air Intake Visit Reasons: 3m follow up labs Intake Note: Pt is here today to f/u labs Can Filling Room Sweeper Required: No Allergies No Known Allergies Allergy (Verified 01/03/25 09:55) Medication List - Last Reconciled 01/03/25 by Juany Victoria MD B-complex with vitamin C 1 tab PO DAILY calcium carbonate 600 mg PO DAILY coenzyme Q10 100 mg PO DAILY 3 months fluticasone propionate 50 mcg/actuation (Allergy Relief (fluticasone)) 1 spray intranasal DAILY 3 months hydrochlorothiazide 12.5 mg PO QAM multivitamin 1 tab PO DAILY rosuvastatin 5 mg PO DAILY 3 months Tobacco use date assessed: 01/03/25 Dental Screening Dental Screen Date: 01/03/25 Did you have a dental visit in the last 12 months?: Yes Did you have a dental problem in the last 6 months where you did not have access to dental care?: No Was dental information given to patient?: Patient has dentist HPI 3m follow up labs HPI Details 64-year-old lady here today for follow-up on her lipids. Currently on rosuvastatin 5 mg taken daily, with latest fasting labs showed elevated triglycerides but LDL cholesterol within normal limits, total CK is also within normal limits. 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 Brother CAD (coronary artery disease) Myocardial infarction Sister COPD (chronic obstructive pulmonary disease) Smoker Breast cancer Sister HTN (hypertension) Son Asthma Mental health disorder Sister No problems noted. Brother No problems noted. Son No problems noted. Social History Housing: House Alcohol intake: current Patient Tobacco Use Status: Former Tobacco user e-Cigarette/Vaping Use: Never Used service: No Current occupational status: employed Cognitive needs: No Hearing needs: No Vision needs: Yes Questionnaire PHQ-9 Over the last 2 weeks, how often have you been bothered by any of the following problems? 1. Little interest or pleasure in doing things: not at all 2. Feeling down, depressed, or hopeless: not at all 3. Trouble falling or staying asleep, or sleeping too much: not at all 4. Feeling tired or having little energy: not at all 5. Poor appetite or overeating: not at all 6. Feeling bad about yourself - or that you are a failure or have let yourself or your family down: not at all 7. Trouble concentrating on things, such as reading the newspaper or watching television: not at all 8. Moving or speaking so slowly that other people could have noticed. Or the opposite - being so fidgety or restless that you have been moving around a lot more than usual: not at all 9. Thoughts that you would be better off or of hurting yourself in some way: not at all Total score: 0 Depression Screening Interpretation: Negative Depression Screening Done: Yes Source: Developed by Drs. Ronald Wayne, Sirena Wilson, Gael Olson and colleagues, with an educational meli from [employer]. Thrive Questionnaire Date Thrive assessed: 06/16/24 I am a: Patient What is your living situation today?: I have a steady place to live Within the past 12 months, did the food you bought not last and you didn't have the money to get more?: Never true Within the past 12 months, did you worry whether your food would run out before you got money to buy more?: Never true Do you have trouble paying for medicines?: No Do you have trouble getting transportation to medical appointments?: No Do you have trouble paying your heating and electricity bill?: No Do you have trouble taking care of your child, family member or friend?: No Do you have trouble with day-to-day activities such as bathing, preparing meals, shopping, managing finances, etc.?: No Are you currently unemployed and looking for a job?: No Are you interested in more education?: No Please select the resources that you would like help with: None Currently or been in a relationship where the following occur: No concerns reported THRIVE Score: 0 ERIC-7 AMB Questionnaire ERIC-7 Date ERIC - 7 assessed: 06/22/24 Source: Developed by Drs. Ronald Wayne, Sirena Wilson, Gael Olson and colleagues, with an educational meli from [employer]. Review of Systems Const All systems reviewed & are unremarkable except as noted in HPI and below Neuro Denies Sensory deficit (Neuro) Physical exam (Primary Care) Vital Signs: Last Vital Signs Temp 98.7 F 01/03/25 09:37 Pulse 68 01/03/25 09:37 Resp 16 01/03/25 09:37 BP 124/80 01/03/25 09:37 Pulse Ox 98 01/03/25 09:37 Oxygen Delivery Method Room Air 01/03/25 09:37 BMI result Body Mass Index 26.7 Tobacco/Smoking Status: Tobacco use Status Tobacco use date assessed 01/03/25 01/03/25 09:49 Patient Tobacco Use Status Former Tobacco user 01/03/25 09:37 e-Cigarette/Vaping Use Never Used 01/03/25 09:37 PHQ-9: PHQ-9 Score PHQ-9: Total score 0 01/03/25 09:57 Depression Screening Interpretation: Negative Thrive Assessment: Date of Thrive Assessment Date Thrive assessed 06/16/24 01/03/25 09:37 Currently or been in a relationship where the following occur: No concerns reported Const Orientation/consciousness: patient oriented x3 HENMT Ears: external ears normal General nose exam: Normal nasal mucous membranes and turbinates present Face and sinus: Yes face symmetric Mouth: Normal oral and palatal mucosa present and moist mucous membranes Eyes General: appearance normal, both eyes and all related structures Neck Neck: Yes full ROM, Yes no lymphadenopathy and Yes supple Thyroid: Thyroid normal Resp Effort & Inspection: normal respiratory effort and able to speak in complete sentences Auscultation: clear to auscultation bilaterally Cardio Rate: regular rate Rhythm: regular rhythm Heart sounds: S1 normal heart sound present and S2 normal heart sound present GI Inspection: Yes normal to inspection Palpation (GI): Soft to palpation, nontender and no guarding Auscultation: normal bowel sounds Back/Spine/Pelvis Back: No back tenderness Skin General skin exam: no rashes or lesions noted Neuro General: patient oriented x3, gait normal, tone normal, moves all extremities, Normal light touch and pain sensation, no focal motor deficits and CN's II-XI intact bilaterally Sensory Exam: No Sensory deficit (Neuro) Extrem General: Yes full ROM, Yes no joint enlargement and Yes normal gait Results Reviewed Results Reviewed: Name: Galina Escobar Age/Sex: 64/F : 1960 Unit#: [id number] Attend Dr: Juany Victoria MD Re12/28/24 Status: DEP REF Location: [facility] Disch: SPEC : [id number] MILLICENT: 12/28/24 STATUS: COMP REQ : [id number] RECD: 12/28/[address]: Juany Victoria MD COMP: 12/28/24 ENTERED: 12/28/[address]: ORDERED: CK Total, Lipid Panel, Vitamin D 25-OH Test Result Flag Reference CK Total 72 26-140 U/L Triglyceride 352 H <150 mg/dL Desirable Triglyceride: less than 150 mg/dL Borderline High Triglyceride 150-199 mg/dL High Triglyceride: 200-499 mg/dL Very High Triglyceride: greater than or equal to 5OO mg/dL Cholesterol 223 H <200 mg/dL Desirable Cholesterol: less than 200 mg/dL Borderline High Cholesterol: 200-239 mg/dL High Cholesterol: greater than 239 mg/dL LDL Calculated 97 <100 mg/dL Desirable LDL: less than 100 mg/dL Near Optimal/Above Optimal LDL: 110-129 mg/dL Borderline High LDL: 130-159 mg/dL High LDL: 160-189 mg/dL Very High LDL: greater than or equal to 190 mg/dL HDL 56 >40 mg/dL Desirable HDL: greater than 40 mg/dL Note: This HDL assay may give artificially low results in patients with liver disease. 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 Continue with hydrochlorothiazide 12.5 mg in the morning . Reinforced importance of following a low sodium diet, getting regular exercise, and lowering stress levels. (2) Mixed dyslipidemia: Code(s): E78.2 - Mixed hyperlipidemia Category: Medical Plan: Improvement in LDL cholesterol noted but triglycerides still elevated. On rosuvastatin 5 mg daily, and prescription sent for [place] 3 fatty acid ethyl esters, to take 2 capsules twice a day. 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 Aspartate Amino Transferase 06/24/25 E67.3 - Hypervitaminosis D, E78.2 - Mixed hyperlipidemia, I10 - Essential (primary) hypertension, M31.30 - 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
--- OUTSIDE RECORDS SUMMARY | 2025-01-03 09:58 | XMS_ITS | Clinical Summary ---
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 She is reminded that vaccinations if needed should be administered no earlier than 2-4 weeks prior to next scheduled rituximab dose administered every 6 months. Assessment & Plan (03/22/2024 8:50 PM EST): Reviewed need for close monitoring and communication with NA fevers or signs of infection. Reviewed need for informing any new MDLORRIE, SHOOTER HELPER about treatment with rituximab particularly in emergency [...] Therapy Plans in addition to referral to [facility] Infusion Center to schedule infusion once [...] Team Description 11/07/2024 8:30 AM EDT Infusion [facility] Infusion [address] [address] Dayanna Silverman MD Granulomatosis with polyangiitis with vasculitis (Primary Dx) 10/24/2024 8:30 AM EDT Infusion [facility] Infusion [address] [address] Dayanna Silverman MD Granulomatosis with polyangiitis with vasculitis (Primary Dx) 10/17/2024 7:49 AM EDT - 10/17/2024 11:59 PM EDT Hospital Encounter [facility] Laboratory [address] [place] [phone] Dayanna Silverman MD Discharge Disposition: Home or [...] Description 04/12/2025 8:00 AM EST Office Visit [facility] Rheumatology [address] [place] [address] Dayanna Silverman MD [address] [facility], [address] [place] [address] [email or web address] Health Maintenance Due Date Last Done Comments [...] AM EDT) URINE TOTAL PROTEIN 5.0 mg/dL [facility] URINE CREATININE 76 mg/dL [facility] URINE TP CRE RATIO 0.07 0 - 0.19 [facility] Urine (Urine) 10/17/2024 8:1 4 AM EDT 10/17/2024 8:18 AM EDT us Dayanna Silverman MD URINE ORDERABLES Final R esult Performing Organization Address City/[facility]/ZIP Co de Phone Number [facility] [address] [place], [place] [phone] * PROTEINASE 3 ANTIBODY, IGG (10/17/2024 8:06 AM EDT) PROTEINASE 3 AB <0.2 <0.4 (Negative) U [facility] MED/PATH [address] Blood 10/17/2024 8:06 AM EDT 10/17/2024 8:12 AM EDT us Dayanna Silverman MD LAB BLOOD ORDERABLES Fin al Result [facility] [address] [address] [place] [address] * (ABNORMAL) T+B cell quant, flow cytometry (10/17/2024 8:06 AM EDT) Pathologist [facility] CD45 LYMPH COUNT 1.23 0.82 - 2.84 th/[facility] LAB MED/PATH [address] %CD3 (T CELLS) 65 58 - 86 % [facility] MED/PATH [address] DR %CD19 (B CELLS) 0(L) 3 - 24 % [facility] MED/PATH [address] %CD16+CD56 (NK CELLS) 34(H) 5 - 28 % [facility] MED/PATH [address] %CD4 (HELPER CELLS) 55 32 - 64 % [facility] MED/PATH [address] %CD8 (SUPPR CELLS) 10 8 - 40 % [facility] MED/PATH [address] CD3 (T CELLS) 800 550 - 2,202 cells/mc L [facility] MED/PATH [address] CD19 (B CELLS) 0(L) 45 - 409 cells/mc L [facility] MED/PATH [address] CD16+CD56 (NK CELLS) 421 59 - 513 cells/mc L [facility] MED/PATH [address] CD4 (HELPER CELLS) 683 365 - 1,437 cells/mc L [facility] MED/PATH [address] CD8 (SUPPR CELLS) 118 80 - 846 cells/mc L [facility] MED/PATH [address] DR H/S RATIO 5.8 >=0.9 [facility] MED/PATH [facility] Comment: (NOTE) ADDITIONAL INFORMATION This test was developed using an analyte specific reagent. Its performance characteristics were determined by [facility] in a manner consistent with CLIA requirements. This test has not been cleared or approved by the U.S. Food and Drug Administration. COMMENT Test component not applicable or not reported. [facility] LAB MED/PATH SUPERIOR RICHARD Blood 10/17/2024 8:06 AM EDT 10/17/2024 8:12 AM EDT us Dayanna Silverman MD LAB BLOOD ORDERABLES Fin al Result [facility] MED[facility] [address] [place] [address] * Comprehensive metabolic panel (10/17/2024 8:06 AM EDT) Pathologist [facility] SODIUM 141 133 - 146 mmol/L [facility] POTASSIUM 4.5 3.3 - 5.1 mmol/L [facility] CHLORIDE 103 96 - 108 mmol/L [facility] CO2 28 21 - 35 mmol/L [facility] BUN 13 6 - 19 mg/dL [facility] CREATININE 0.80 0.5 - 1.5 mg/dL [facility] GLUCOSE 98 70 - 99 mg/dL [facility] ALBUMIN 4.3 3.9 - 4.8 g/dL [facility] TOTAL PROTEIN 6.9 6.5 - 8.0 g/dL [facility] CALCIUM 10.3 8.4 - 10.3 mg/dL [facility] ALKALINE PHOSPHATASE 92 39 - 117 U/L [facility] TOTAL BILIRUBIN 0.4 0.0 - 1.2 mg/dL [facility] AST 22 0 - 37 U/L [facility] ALT 20 0 - 40 U/L [facility] GLOBULIN 2.6 1 - 4.8 g/dL [facility] EGFR 83 >59 mL/min/1.7 3m2 [facility] Comment:Estimated glomerular filtration rate calculated using the CKD-EPI refit equation. ANION GAP 15 10 - 20 mmol/L [facility] Blood 10/17/2024 8:06 AM EDT 10/17/2024 8:12 AM EDT us Dayanna Silverman MD LAB BLOOD ORDERABLES Fin al Result [facility] [address] [place] [address] * Anti-Neutrophil Cytoplasmic Antibody (ANCA) (10/17/2024 8:06 AM EDT) Pathologist [facility] C-ANCA Negative Negative [facility] P-ANCA Negative Negative [facility] Comment: (NOTE) Negative for cANCA and pANCA patterns by immunofluorescence. ADDITIONAL INFORMATION This test was developed and its performance characteristics determined by [facility] in a manner consistent with CLIA requirements. This test has not been cleared or approved by the U.S. Food and Drug Administration. Blood 10/17/2024 8:06 AM EDT 10/17/2024 8:12 AM EDT Dayanna Silverman MD LAB BLOOD ORDERABLES Fin al Result [facility] [address] [place] [address] * Sedimentation rate (ESR) (10/17/2024 8:06 AM EDT) ESR 3 0 - 30 mm/h [facility] Blood 10/17/2024 8:06 AM EDT 10/17/2024 8:12 AM EDT Dayanna Silverman MD LAB BLOOD ORDERABLES Fin al Result Performing Organization Address City/[facility]/ZIP Co de Phone Number [address] [address] * (ABNORMAL) CBC and differential (10/17/2024 8:06 AM EDT) WBC 6.62 4.00 - 11.00 K/uL [facility] RBC 4.44 4.00 - 5.20 M/uL [facility] HGB 13.2 12.0 - 16.0 g/dL [facility] HCT 39.9 36.0 - 46.0 % [facility] PLT 309 150 - 450 K/uL [facility] MCV 89.9 80.0 - 100.0 fL [facility] MCH 29.7 27.0 - 31.0 pg [facility] MCHC 33.1 32.0 - 36.0 g/dL [facility] RDW 12.6 11.5 - 14.5 % [facility] MPV 10.4 8.4 - 12.0 fL [facility] NRBC 0.00 0.00 /100 WBCs [facility] ABSOLUTE NRBC 0.00 0.00 K/uL [facility] DIFF METHOD Auto [facility] NEUTS 61.3 48.0 - 76.0 % [facility] LYMPHS 22.4 18.0 - 41.0 % [facility] MONOS 9.2 4.0 - 11.0 % [facility] EOS 5.7(H) 0.0 - 5.0 % [facility] BASOS 1.2 0.0 - 1.5 % [facility] Granulocytes, immature (%) 0.2 0.0 - 0.9 % [facility] ABSOLUTE NEUTS 4.06 1.92 - 7.60 K/uL [facility] ABSOLUTE LYMPHS 1.48 0.72 - 4.10 K/uL [facility] ABSOLUTE MONOS 0.61 0.16 - 1.10 K/uL [facility] ABSOLUTE EOS 0.38 0.00 - 0.50 K/uL [facility] ABSOLUTE BASOS 0.08 0.00 - 0.15 K/uL [facility] Granulocytes, immature 0.01 0.00 - 0.09 K/uL [facility] Blood 10/17/2024 8:06 AM EDT 10/17/2024 8:12 AM EDT us Dayanna Silverman MD LAB BLOOD ORDERABLES Fin al Result Performing Organization Address City/State/[facility] Co de Phone Number [address] [address] * C-Reactive Protein (10/17/2024 8:06 AM EDT) C REACTIVE PROTEIN <3.0 0.0 - 4.0 mg/L [facility] Blood 10/17/2024 8:06 AM EDT 10/17/2024 8:12 AM EDT us Dayanna Silverman MD LAB BLOOD ORDERABLES Fin al Result [address] [address] * Hepatitis C antibody, qualitative (03/20/2023 3:02 PM EST) HCV NON-REACTIV E NON-REACTI VE [facility] Blood 03/20/2023 3:02 PM EST 03/20/2023 3:08 PM EST us Rivas Mccord MD LAB BLOOD ORDERABLES Fi nal Result Performing Organization Address [facility] Co de Phone Number [address] [address] from Last 3 Months or Most Recently Relevant to Health Maintenance Insurance [employer] PPO CIGNA PPO CIG PPO CIG PPO CIG PPO [employer] PPO Care Teams Structural Steel Trades Worker Relationship Specialty Start Date End Date Juany Victoria MD [address] [place] [address] PCP - General Internal Medicine 03/02/23 Additional Source Comments The information contained in this document represents components of the legal health record. It is not the complete legal health record.[facility]
--- OUTSIDE RECORDS SUMMARY | 2025-01-03 09:59 | XMS_ITS | Clinical Summary ---
Author Organization [facility] Address [address] [place] [phone] Phone Care Team Providers Care Education And Development Manager Name Role Phone Juany Victoria MD Primary [...] AM EDT [facility]ointment [facility] [address] [phone] Health Maintenance Due Date Last [...] year. Mammo Location: [facility], [address] [place] [address], [id number], . -------- FINAL REPORT -------- Dictated By: Ellen Cotton Dictated Date: 06/09/2024 14:21 ET Assigned Physician: Ellen Cotton Reviewed and Electronically Signed By: Ellen Cotton Signed Date: 06/09/2024 14:23 ET Workstation ID: [id number] Transcribed By: Self Edit Transcribed Date: 06/09/2024 [...] year. Mammo Location: [facility], [address] [place] [address], [id number], . -------- FINAL REPORT -------- Dictated By: Ellen Cotton Dictated Date: 06/09/2024 14:21 ET Assigned Physician: Ellen Cotton Reviewed and Electronically Signed By: Ellen Cotton Signed Date: 06/09/2024 14:23 ET Workstation ID: [id number] Transcribed By: Self Edit Transcribed Date: 06/09/2024 14:21 ET us Self Referral Sppl IMG BI PROCEDURES Final Resul t from Last 3 Months or Most Recently Relevant to Health Maintenance Insurance [facility] Care Teams Education And Development Manager Relationship Specialty Start Date End Date Juany Victoria MD [address] [facility] [place] [phone] PCP - General Internal Medicine 01/27/24
== END 2025-01-03 10:48 | disposition home or self-care (01) ==
LOC: HO.HMCC 09:13
PROVIDERS: PCP Internal Medicine; Visit Provider Internal Medicine
DX: I10 Essential (primary) hypertension (principal); E78.2 Mixed hyperlipidemia; M31.30 Wegener's granulomatosis without renal involvement